=== PATIENT | male | born 1965 | race African-American/Black ===

== ENCOUNTER 2019-05-03 22:12 | Inpatient (IN) | payer MEDICARE, OTHER ==
[~2019-05-03] VITALS: Ht 157.5 cm; Wt 86.3 kg
[~2019-05-03 22:12] MED LIST: HEPARIN SODIUM,PORCINE 5000 UNITS/ML VIAL SUBCUT ONE; LIDOCAINE 1% 10 MG/ML, 20 ML MDV INJ ONE; LR 1,000 ML IV.SOLN IV ONE; METOCLOPRAMIDE HCL 10 MG/2 ML VIAL IVP ONE; MIDAZOLAM HCL 5 MG/5 ML VIAL IVP ONE; NS 50 ML BAG IV ONE; NS IRRIG SOLN 1000 ML IR ONE; ONDANSETRON HCL 4 MG/2 ML VIAL IVP ONE
[2019-05-03 22:20] VITALS: BP_SYST 113
[2019-05-03] MEDS ORDERED: NS 500 ML IV ONE (22:45)
[2019-05-03] MEDS ORDERED: ONDANSETRON HCL 4 MG/2 ML VIAL IVP ONE (22:45)
[2019-05-03 23:55] LABS: BASOPHILS # (AUTO) 0.1 K/uL (0.0-0.2); BASOPHILS % (AUTO) 0.8 % (0.0-2.0); EOSINOPHILS # (AUTO) 0.2 K/uL (0.0-0.4); EOSINOPHILS % (AUTO) 1.8 % (0.0-4.0); HEMATOCRIT 31.4 % (36-54); HEMOGLOBIN 10.4 g/dL (14.0-18.0); LYMPHOCYTES # (AUTO) 3.8 K/uL (1.0-5.5); LYMPHOCYTES % (AUTO) 30.4 % (20.5-51.5); MEAN CORPUSCULAR HEMOGLOBIN 33 pg (27-31); MEAN CORPUSCULAR HGB CONC 33 % (32-36); MEAN CORPUSCULAR VOLUME 99 fL (79.0-98.0); MONOCYTES # (AUTO) 0.8 K/uL (0.0-1.0); MONOCYTES % (AUTO) 6.7 % (1.7-9.3); NEUTROPHILS # (AUTO) 7.6 K/uL (1.8-7.7); NEUTROPHILS % (AUTO) 60.3 % (40.0-70.0); PLATELET COUNT (AUTO) 278 K/uL (130-430); RED BLOOD CELL COUNT(AUTO) 3.17 MIL/uL (4.2-6.2); RED CELL DISTRIBUTION WIDTH 17.7 % (9.0-15.0); WHITE BLOOD COUNT (AUTO) 12.5 K/uL (4.8-10.8)
[2019-05-04 00:08] LABS: CALCIUM 11.8 mg/dL (8.4-11.0); POTASSIUM 5.7 mmol/L (3.5-5.1)
[2019-05-04 00:12] LABS: PROTHROMBIN TIME 9.9 SECS (9.5-12.5)
[2019-05-04 00:15] LABS: ALBUMIN 3.1 g/dL (3.4-4.8); TOTAL BILIRUBIN 0.3 mg/dL (0.0-1.0)
[2019-05-04 00:19] LABS: CREATININE 10.03 mg/dL (0.55-1.30)
[2019-05-04] MEDS ORDERED: ACET-2165 GT (00:31)
[2019-05-04] MEDS ORDERED: BUDE0.5A4 NEB (00:34)
[2019-05-04] MEDS ORDERED: CAT.1 GT (00:35)
[2019-05-04] MEDS ORDERED: CYCL-10 PO (00:36)
[2019-05-04] MEDS ORDERED: BISA10SU61 RC (00:37)
[2019-05-04] MEDS ORDERED: FER300L GT (00:38)
[2019-05-04] MEDS ORDERED: HEPA500015 SUBCUT (00:39)
[2019-05-04] MEDS ORDERED: NA P133E41 RC (00:39)
[2019-05-04] MEDS ORDERED: IPRA3AMP9 INH (00:41)
[2019-05-04] MEDS ORDERED: LABE100T5 GT (00:44)
[2019-05-04] MEDS ORDERED: LACT1TAB21 GT (00:47)
[2019-05-04] MEDS ORDERED: VITA0.4T8 PO (00:50)
[2019-05-04] MEDS ORDERED: VALP250S3 GT (00:52)
[2019-05-04] MEDS ORDERED: INSULIN REGULAR, HUMAN 10 UNITS/0.1 ML INJ IVP ONE (01:00)
[2019-05-04] MEDS ORDERED: DEXTROSE 50% JECT 50 ML DISP.SYRIN IVP ONE ×3 (01:00→06:15)
[2019-05-04] MEDS ORDERED: SODIUM BICARBONATE 8.4% JECT 50 MEQ/50 ML SYRINGE IVP ONE (01:00)
[2019-05-04] MEDS ORDERED: CALCIUM GLUCONATE 1 GM/10 ML VIAL IVP ONE (01:00)
[2019-05-04] MEDS ORDERED: CALCIUM GLUCONATE 1 GM/10 ML VIAL ONE (01:15)
[2019-05-04] MEDS ORDERED: DEXTROSE 50% JECT 50 ML DISP.SYRIN ONE ×2 (01:46→06:23)
[2019-05-04] MEDS ORDERED: ONDANSETRON HCL 4 MG/2 ML VIAL IVP ONE (04:30)
[2019-05-04] MEDS ORDERED: ONDANSETRON HCL 4 MG/2 ML VIAL ONE (04:35)
[2019-05-04] MEDS ORDERED: NUT.237L67 GT (06:07)
[2019-05-04] MEDS ORDERED: PANTOPRAZOLE SODIUM 40 MG/VIAL (PROTONIX) IVP ONE (07:00)
[2019-05-04] MEDS ORDERED: ONDANSETRON HCL 4 MG/2 ML VIAL IVP PRN (07:00)
[2019-05-04 09:00] VITALS: BP_SYST 120
[2019-05-04] MEDS ORDERED: cefTRIAXone 1 GM in D5W 50 ML IV ONE (09:00)
[2019-05-04] MEDS: D5/0.45 NS 1,000 ML IV SCH ×2 (09:24→13:28)
[2019-05-04] MEDS ORDERED: BISACODYL 10 MG/SUPPOSITORY RC PRN (09:30)
[2019-05-04] MEDS ORDERED: ACETAMINOPHEN 325 MG TABLET GT PRN (09:30)
[2019-05-04] MEDS ORDERED: CYCLOBENZAPRINE HCL 10 MG TABLET (FLEXERIL) PO SCH (09:30)
[2019-05-04] MEDS ORDERED: SODIUM POLYSTYRENE SULFONATE 15 GM/60 ML UDBTL GT ONE (10:00)
[2019-05-04 10:27] LABS: BILIRUBIN,URINE NEGATIVE (NEGATIVE); BLOOD, URINE 2+ (NEGATIVE); CLARITY/URINE CLEAR (CLEAR); COLOR,URINE YELLOW (YELLOW); GLUCOSE,URINE NEGATIVE (NEGATIVE); KETONES,URINE NEGATIVE (NEGATIVE); LEUKOCYTE ESTERASE ,URINE NEGATIVE (NEGATIVE); NITRITE, URINE NEGATIVE (NEGATIVE); PH,URINE 6.5 (5.0-8.0); PROTEIN URINE 2+ (NEGATIVE); UROBILINOGEN,URINE 0.2 (0.2-1.0)
[2019-05-04 10:59] LABS: BACTERIA,URINE FEW /HPF (None Seen); MUCUS,URINE 1+ /LPF (None Seen); WBC,URINE 0-3 /HPF (0-3)
[2019-05-04] MEDS ORDERED: HEPARIN SODIUM,PORCINE 5000 UNITS/ML VIAL MC ONE (11:30)
[2019-05-04 12:14] LABS: POTASSIUM 5.2 mmol/L (3.5-5.1)
[2019-05-04 12:17] LABS: ALBUMIN 2.7 g/dL (3.4-4.8); TOTAL BILIRUBIN 0.3 mg/dL (0.0-1.0)
[2019-05-04 12:20] VITALS: BP_SYST 123
[2019-05-04 12:25] LABS: CREATININE 10.33 mg/dL (0.55-1.30)
[2019-05-04 13:01] LABS: BASOPHILS % (AUTO) 0.1 % (0.0-2.0); EOSINOPHILS # (AUTO) 0.1 K/uL (0.0-0.4); EOSINOPHILS % (AUTO) 0.9 % (0.0-4.0); HEMATOCRIT 29.8 % (36-54); HEMOGLOBIN 9.7 g/dL (14.0-18.0); LYMPHOCYTES # (AUTO) 2.6 K/uL (1.0-5.5); LYMPHOCYTES % (AUTO) 21.4 % (20.5-51.5); MEAN CORPUSCULAR HEMOGLOBIN 33 pg (27-31); MEAN CORPUSCULAR HGB CONC 33 % (32-36); MEAN CORPUSCULAR VOLUME 100 fL (79.0-98.0); MONOCYTES % (AUTO) 8.2 % (1.7-9.3); NEUTROPHILS # (AUTO) 8.4 K/uL (1.8-7.7); NEUTROPHILS % (AUTO) 69.4 % (40.0-70.0); PLATELET COUNT (AUTO) 245 K/uL (130-430); RED BLOOD CELL COUNT(AUTO) 2.98 MIL/uL (4.2-6.2); RED CELL DISTRIBUTION WIDTH 17.5 % (9.0-15.0); WHITE BLOOD COUNT (AUTO) 12.1 K/uL (4.8-10.8)
[2019-05-04] MEDS: VALPROIC ACID ORAL SYRUP 250 MG/5 ML UDC GT SCH ×2 (13:28→23:00)
[2019-05-04] MEDS ORDERED: LR 1,000 ML IV SCH (16:16)
[2019-05-04] MEDS ORDERED: HYDROmorphone 2 MG/ML VIAL IVP PRN ×2 (16:30)
[2019-05-04] MEDS ORDERED: HYDROmorphone 1 MG INJ. 1 MG/ML AMPUL IVP PRN (16:30)
[2019-05-04] MEDS ORDERED: MEPERIDINE HCL/PF 25 MG/ML DISP.SYRIN IVP PRN (16:30)
[2019-05-04] MEDS: BUDESONIDE 0.5 MG/2 ML AMPUL.NEB INH SCH (20:01)
[2019-05-04] MEDS: PANTOPRAZOLE SODIUM 40 MG/VIAL (PROTONIX) IVP SCH (22:46)
[2019-05-04] MEDS: HEPARIN SODIUM,PORCINE 5000 UNITS/ML VIAL SUBCUT SCH (22:49)
[2019-05-05 00:44] VITALS: BP_SYST 121
[2019-05-05] MEDS: D5/0.45 NS 1,000 ML IV SCH ×4 (03:00→16:20)
[2019-05-05 03:19] LABS: BARBITURATE, URINE NEGATIVE (NEG <=200); BENZODIAZEPINE, URINE NEGATIVE (NEG <=150); CANNABINOID, URINE NEGATIVE (NEG <=50); COCAINE, URINE NEGATIVE (NEG <=150); METHAMPHETAMINES SCREEN,URINE NEGATIVE (NEG <=500); OPIATE, URINE NEGATIVE (NEG <=100); PHENCYCLIDINE SCREEN,URINE NEGATIVE (NEG <=25); UR TRICYCLIC ANTIDEPRESSANTS NEGATIVE (NEG <=300); URINE AMPHETAMINE NEGATIVE (NEG <=500); URINE METHADONE NEGATIVE (NEG <=200); URINE OXYCODONE SCREEN NEGATIVE (NEG <=100); URINE PROPOXYPHENE SCREEN NEGATIVE (NEG <=300)
[2019-05-05] MEDS: VALPROIC ACID ORAL SYRUP 250 MG/5 ML UDC GT SCH (06:26)
[2019-05-05] MEDS: BUDESONIDE 0.5 MG/2 ML AMPUL.NEB INH SCH ×2 (08:03→20:10)
[2019-05-05] MEDS: PANTOPRAZOLE SODIUM 40 MG/VIAL (PROTONIX) IVP SCH ×2 (11:51→22:24)
[2019-05-05] MEDS: HEPARIN SODIUM,PORCINE 5000 UNITS/ML VIAL SUBCUT SCH ×2 (11:53→22:31)
[2019-05-05 12:00] VITALS: BP_SYST 99
[2019-05-05] MEDS: VALPROATE SODIUM 750 MG in D5W 100 ML IV SCH ×2 (15:33→22:25)
[2019-05-05 16:00] VITALS: BP_SYST 104
[2019-05-05] MEDS: IPRATROPIUM/ALBUTEROL SULFATE 3 ML AMPUL.NEB (DUONEB) INH PRN (19:55)
[2019-05-05 21:16] VITALS: BP_SYST 131
[2019-05-05] MEDS ORDERED: VANCOMYCIN HCL 1 GM/NS PREMIX 250 ML IV ONE (22:00)
[2019-05-05] MEDS: MUPIROCIN 2% TOPICAL OINTMENT 22 GM NS SCH (22:24)
[2019-05-06] MEDS ORDERED: VANCOMYCIN HCL 1000 MG/VIAL IV ONE (00:24)
[2019-05-06 00:28] VITALS: BP_SYST 107
[2019-05-06] MEDS: D5/0.45 NS 1,000 ML IV SCH ×3 (00:55→19:00)
[2019-05-06] MEDS: VALPROATE SODIUM 750 MG in D5W 100 ML IV SCH ×3 (05:41→22:23)
[2019-05-06 07:43] LABS: INR 1.1 (0.80-1.20); PROTHROMBIN TIME 10.7 SECS (9.5-12.5)
[2019-05-06 08:45] VITALS: BP_SYST 139
[2019-05-06] MEDS: PANTOPRAZOLE SODIUM 40 MG/VIAL (PROTONIX) IVP SCH ×2 (08:46→22:23)
[2019-05-06] MEDS: HEPARIN SODIUM,PORCINE 5000 UNITS/ML VIAL SUBCUT SCH ×2 (08:47→22:33)
[2019-05-06] MEDS: MUPIROCIN 2% TOPICAL OINTMENT 22 GM NS SCH ×2 (08:48→22:25)
[2019-05-06] MEDS: BUDESONIDE 0.5 MG/2 ML AMPUL.NEB INH SCH ×2 (09:09→20:34)
[2019-05-06 09:25] LABS: BASOPHILS % (AUTO) 0.4 % (0.0-2.0); EOSINOPHILS # (AUTO) 0.4 K/uL (0.0-0.4); EOSINOPHILS % (AUTO) 4.6 % (0.0-4.0); HEMATOCRIT 22.7 % (36-54); HEMOGLOBIN 7.8 g/dL (14.0-18.0); LYMPHOCYTES # (AUTO) 3.9 K/uL (1.0-5.5); LYMPHOCYTES % (AUTO) 47.6 % (20.5-51.5); MEAN CORPUSCULAR HEMOGLOBIN 34 pg (27-31); MEAN CORPUSCULAR HGB CONC 34 % (32-36); MEAN CORPUSCULAR VOLUME 99 fL (79.0-98.0); MONOCYTES # (AUTO) 0.7 K/uL (0.0-1.0); MONOCYTES % (AUTO) 7.9 % (1.7-9.3); NEUTROPHILS # (AUTO) 3.2 K/uL (1.8-7.7); NEUTROPHILS % (AUTO) 39.5 % (40.0-70.0); PLATELET COUNT (AUTO) 167 K/uL (130-430); RED CELL DISTRIBUTION WIDTH 16.7 % (9.0-15.0); WHITE BLOOD COUNT (AUTO) 8.2 K/uL (4.8-10.8)
[2019-05-06 09:38] LABS: CALCIUM 8.5 mg/dL (8.4-11.0); POTASSIUM 3.9 mmol/L (3.5-5.1)
[2019-05-06 09:39] LABS: ALBUMIN 2.2 g/dL (3.4-4.8); CREATININE 6.08 mg/dL (0.55-1.30); TOTAL BILIRUBIN 0.3 mg/dL (0.0-1.0)
[2019-05-06 13:08] VITALS: BP_SYST 128
[2019-05-06 17:06] VITALS: BP_SYST 134
[2019-05-06 20:00] VITALS: BP_SYST 124
[2019-05-06] MEDS: IPRATROPIUM/ALBUTEROL SULFATE 3 ML AMPUL.NEB (DUONEB) INH PRN (20:34)
[2019-05-07 01:27] VITALS: BP_SYST 110
[2019-05-07] MEDS: D5/0.45 NS 1,000 ML IV SCH (05:40)
[2019-05-07] MEDS: VALPROATE SODIUM 750 MG in D5W 100 ML IV SCH ×3 (05:41→22:59)
[2019-05-07 08:00] VITALS: BP_SYST 113
[2019-05-07] MEDS: BUDESONIDE 0.5 MG/2 ML AMPUL.NEB INH SCH ×2 (09:00→22:06)
[2019-05-07] MEDS: HEPARIN SODIUM,PORCINE 5000 UNITS/ML VIAL SUBCUT SCH ×2 (09:09→23:00)
[2019-05-07] MEDS: MUPIROCIN 2% TOPICAL OINTMENT 22 GM NS SCH ×2 (09:16→23:02)
[2019-05-07] MEDS: PANTOPRAZOLE SODIUM 40 MG/VIAL (PROTONIX) IVP SCH ×2 (09:16→23:02)
[2019-05-07 11:05] VITALS: BP_SYST 113
[2019-05-07 12:00] VITALS: BP_SYST 134
[2019-05-07 14:00] LABS: BASOPHILS % (AUTO) 0.5 % (0.0-2.0); EOSINOPHILS # (AUTO) 0.4 K/uL (0.0-0.4); EOSINOPHILS % (AUTO) 5.3 % (0.0-4.0); HEMATOCRIT 23.6 % (36-54); HEMOGLOBIN 7.9 g/dL (14.0-18.0); LYMPHOCYTES # (AUTO) 2.2 K/uL (1.0-5.5); LYMPHOCYTES % (AUTO) 31.9 % (20.5-51.5); MEAN CORPUSCULAR HEMOGLOBIN 33 pg (27-31); MEAN CORPUSCULAR HGB CONC 34 % (32-36); MEAN CORPUSCULAR VOLUME 98 fL (79.0-98.0); MONOCYTES # (AUTO) 0.6 K/uL (0.0-1.0); MONOCYTES % (AUTO) 8.5 % (1.7-9.3); NEUTROPHILS # (AUTO) 3.7 K/uL (1.8-7.7); NEUTROPHILS % (AUTO) 53.8 % (40.0-70.0); PLATELET COUNT (AUTO) 157 K/uL (130-430); RED CELL DISTRIBUTION WIDTH 16.3 % (9.0-15.0); WHITE BLOOD COUNT (AUTO) 6.9 K/uL (4.8-10.8)
[2019-05-07 14:17] LABS: ALBUMIN 2.3 g/dL (3.4-4.8); CALCIUM 8.4 mg/dL (8.4-11.0); CREATININE 7.08 mg/dL (0.55-1.30); POTASSIUM 3.4 mmol/L (3.5-5.1); TOTAL BILIRUBIN 0.3 mg/dL (0.0-1.0)
[2019-05-07] MEDS ORDERED: ALTEPLASE 2 MG VIAL MC ONE (15:45)
[2019-05-07 17:07] VITALS: BP_SYST 139
[2019-05-07 20:00] VITALS: BP_SYST 118
[2019-05-07] MEDS ORDERED: HEPARIN SODIUM,PORCINE 5000 UNITS/ML VIAL MC ONE ×2 (21:15)
[2019-05-08 01:10] VITALS: BP_SYST 116
[2019-05-08] MEDS: D5/0.45 NS 1,000 ML IV SCH (05:32)
[2019-05-08] MEDS: VALPROATE SODIUM 750 MG in D5W 100 ML IV SCH ×3 (05:32→21:51)
[2019-05-08 08:00] VITALS: BP_SYST 105
[2019-05-08] MEDS: BUDESONIDE 0.5 MG/2 ML AMPUL.NEB INH SCH ×2 (08:19→20:13)
[2019-05-08] MEDS: PANTOPRAZOLE SODIUM 40 MG/VIAL (PROTONIX) IVP SCH ×2 (09:00→21:52)
[2019-05-08] MEDS: MUPIROCIN 2% TOPICAL OINTMENT 22 GM NS SCH ×2 (09:01→21:53)
[2019-05-08] MEDS: HEPARIN SODIUM,PORCINE 5000 UNITS/ML VIAL SUBCUT SCH ×2 (09:02→21:52)
[2019-05-08] MEDS ORDERED: VANCOMYCIN HCL 1,000 MG in NS 250 ML IV ONE (10:00)
[2019-05-08 11:14] LABS: BASOPHILS % (AUTO) 0.4 % (0.0-2.0); EOSINOPHILS # (AUTO) 0.3 K/uL (0.0-0.4); EOSINOPHILS % (AUTO) 4.6 % (0.0-4.0); HEMOGLOBIN 7.7 g/dL (14.0-18.0); LYMPHOCYTES # (AUTO) 2.4 K/uL (1.0-5.5); MEAN CORPUSCULAR HEMOGLOBIN 34 pg (27-31); MEAN CORPUSCULAR HGB CONC 35 % (32-36); MEAN CORPUSCULAR VOLUME 97 fL (79.0-98.0); MONOCYTES # (AUTO) 0.5 K/uL (0.0-1.0); NEUTROPHILS # (AUTO) 3.2 K/uL (1.8-7.7); PLATELET COUNT (AUTO) 142 K/uL (130-430); RED BLOOD CELL COUNT(AUTO) 2.26 MIL/uL (4.2-6.2); RED CELL DISTRIBUTION WIDTH 16.3 % (9.0-15.0); WHITE BLOOD COUNT (AUTO) 6.4 K/uL (4.8-10.8)
[2019-05-08 11:49] LABS: CALCIUM 8.5 mg/dL (8.4-11.0); CREATININE 5.12 mg/dL (0.55-1.30); POTASSIUM 3.3 mmol/L (3.5-5.1)
[2019-05-08 12:00] VITALS: BP_SYST 120
[2019-05-08 17:19] VITALS: BP_SYST 129
[2019-05-08 20:10] VITALS: BP_SYST 128
[2019-05-09] VITALS: BP_SYST 106
[2019-05-09] MEDS: D5/0.45 NS 1,000 ML IV SCH (05:51)
[2019-05-09] MEDS: VALPROATE SODIUM 750 MG in D5W 100 ML IV SCH ×3 (05:52→22:04)
[2019-05-09] MEDS: BUDESONIDE 0.5 MG/2 ML AMPUL.NEB INH SCH ×2 (07:27→19:51)
[2019-05-09 08:00] VITALS: BP_SYST 117
[2019-05-09 08:09] LABS: BASOPHILS % (AUTO) 0.4 % (0.0-2.0); CALCIUM 8.7 mg/dL (8.4-11.0); CREATININE 5.89 mg/dL (0.55-1.30); EOSINOPHILS # (AUTO) 0.3 K/uL (0.0-0.4); EOSINOPHILS % (AUTO) 5.9 % (0.0-4.0); HEMOGLOBIN 7.4 g/dL (14.0-18.0); LYMPHOCYTES # (AUTO) 2.3 K/uL (1.0-5.5); LYMPHOCYTES % (AUTO) 43.2 % (20.5-51.5); MEAN CORPUSCULAR HEMOGLOBIN 35 pg (27-31); MEAN CORPUSCULAR VOLUME 98 fL (79.0-98.0); MONOCYTES # (AUTO) 0.4 K/uL (0.0-1.0); MONOCYTES % (AUTO) 8.2 % (1.7-9.3); NEUTROPHILS # (AUTO) 2.2 K/uL (1.8-7.7); PLATELET COUNT (AUTO) 143 K/uL (130-430); POTASSIUM 3.3 mmol/L (3.5-5.1); RED BLOOD CELL COUNT(AUTO) 2.12 MIL/uL (4.2-6.2); RED CELL DISTRIBUTION WIDTH 16.1 % (9.0-15.0); WHITE BLOOD COUNT (AUTO) 5.3 K/uL (4.8-10.8)
[2019-05-09 09:01] LABS: HEMATOCRIT 20.8 % (36-54); MEAN CORPUSCULAR HGB CONC 35 % (32-36)
[2019-05-09] MEDS: HEPARIN SODIUM,PORCINE 5000 UNITS/ML VIAL SUBCUT SCH ×2 (09:09→22:10)
[2019-05-09] MEDS: PANTOPRAZOLE SODIUM 40 MG/VIAL (PROTONIX) IVP SCH ×2 (09:10→22:05)
[2019-05-09] MEDS: MUPIROCIN 2% TOPICAL OINTMENT 22 GM NS SCH ×2 (09:10→22:05)
[2019-05-09] MEDS ORDERED: HEPARIN SODIUM,PORCINE 5000 UNITS/ML VIAL IV ONE (11:00)
[2019-05-09] MEDS ORDERED: HEPARIN SODIUM,PORCINE 5000 UNITS/ML VIAL MC ONE (11:15)
[2019-05-09 12:37] VITALS: BP_SYST 125
[2019-05-09 12:57] LABS: NEUTROPHILS % (AUTO) 42.3 % (40.0-70.0)
[2019-05-09] MEDS ORDERED: VANCOMYCIN HCL 1 GM/NS PREMIX 250 ML IV ONE (17:00)
[2019-05-09 17:16] VITALS: BP_SYST 116
[2019-05-09 22:02] VITALS: BP_SYST 122
[2019-05-10 00:08] VITALS: BP_SYST 123
[2019-05-10] MEDS: D5/0.45 NS 1,000 ML IV SCH ×2 (02:52→05:13)
[2019-05-10] MEDS: VALPROATE SODIUM 750 MG in D5W 100 ML IV SCH ×3 (05:14→22:46)
[2019-05-10 05:21] LABS: HEPATITIS A AB, IgM Negative (Negative); HEPATITIS B CORE AB, IgM Negative (Negative); HEPATITIS B SURFACE AG Negative (Negative)
[2019-05-10] MEDS: BUDESONIDE 0.5 MG/2 ML AMPUL.NEB INH SCH ×2 (07:41→21:19)
[2019-05-10] MEDS: MUPIROCIN 2% TOPICAL OINTMENT 22 GM NS SCH (10:08)
[2019-05-10] MEDS: PANTOPRAZOLE SODIUM 40 MG/VIAL (PROTONIX) IVP SCH ×2 (10:08→22:46)
[2019-05-10] MEDS: HEPARIN SODIUM,PORCINE 5000 UNITS/ML VIAL SUBCUT SCH ×2 (10:14→22:47)
[2019-05-10 15:23] VITALS: BP_SYST 114
[2019-05-10 15:50] LABS: CALCIUM 9.4 mg/dL (8.4-11.0); CREATININE 4.91 mg/dL (0.55-1.30); POTASSIUM 3.5 mmol/L (3.5-5.1)
[2019-05-10 15:53] LABS: PROTHROMBIN TIME 9.9 SECS (9.5-12.5)
[2019-05-10 16:00] VITALS: BP_SYST 120
[2019-05-11 00:30] VITALS: BP_SYST 120
[2019-05-11] MEDS: D5/0.45 NS 1,000 ML IV SCH (04:00)
[2019-05-11] MEDS: VALPROATE SODIUM 750 MG in D5W 100 ML IV SCH ×3 (05:28→22:00)
[2019-05-11] MEDS: BUDESONIDE 0.5 MG/2 ML AMPUL.NEB INH SCH ×2 (07:44→21:28)
[2019-05-11] MEDS: PANTOPRAZOLE SODIUM 40 MG/VIAL (PROTONIX) IVP SCH (09:29)
[2019-05-11] MEDS: HEPARIN SODIUM,PORCINE 5000 UNITS/ML VIAL SUBCUT SCH ×2 (09:31→21:00)
[2019-05-11] MEDS ORDERED: VANCOMYCIN HCL 1,000 MG in NS 250 ML IV ONE (10:00)
[2019-05-11 11:27] VITALS: BP_SYST 114
[2019-05-11 12:52] VITALS: BP_SYST 140
[2019-05-11 17:03] VITALS: BP_SYST 128
[2019-05-11 20:00] VITALS: BP_SYST 132
[2019-05-12] VITALS: BP_SYST 133
[2019-05-12 00:04] VITALS: BP_SYST 103
[2019-05-12] MEDS: PANTOPRAZOLE SODIUM 40 MG/VIAL (PROTONIX) IVP SCH ×3 (00:33→21:00)
[2019-05-12 04:00] VITALS: BP_SYST 114
[2019-05-12] MEDS: VALPROATE SODIUM 750 MG in D5W 100 ML IV SCH ×3 (05:42→22:00)
[2019-05-12] MEDS: BUDESONIDE 0.5 MG/2 ML AMPUL.NEB INH SCH ×3 (05:45→19:50)
[2019-05-12 08:00] VITALS: BP_SYST 119
[2019-05-12] MEDS: HEPARIN SODIUM,PORCINE 5000 UNITS/ML VIAL SUBCUT SCH (10:00)
[2019-05-12 11:36] VITALS: BP_SYST 128
[2019-05-12] MEDS ORDERED: HEPARIN SODIUM, PORCINE 10,000 UNITS/ 10 ML VIAL MC ONE ×2 (14:00→14:15)
[2019-05-12] MEDS ORDERED: HEPARIN SODIUM,PORCINE 5000 UNITS/ML VIAL MC ONE (14:15)
[2019-05-12] MEDS: D5/0.45 NS 1,000 ML IV SCH (15:36)
[2019-05-12 15:58] VITALS: BP_SYST 118
[2019-05-13] VITALS (8 sets, daily range): BP systolic 102–115
[2019-05-13] MEDS: VALPROATE SODIUM 750 MG in D5W 100 ML IV SCH ×3 (06:43→20:16)
[2019-05-13] MEDS: BUDESONIDE 0.5 MG/2 ML AMPUL.NEB INH SCH ×2 (07:35→20:10)
[2019-05-13] MEDS: PANTOPRAZOLE SODIUM 40 MG/VIAL (PROTONIX) IVP SCH ×2 (11:04→20:16)
[2019-05-13] MEDS: HEPARIN SODIUM,PORCINE 5000 UNITS/ML VIAL SUBCUT SCH ×2 (11:08→20:20)
[2019-05-13] MEDS: D5/0.45 NS 1,000 ML IV SCH ×2 (14:40→20:05)
[2019-05-13] MEDS: IPRATROPIUM/ALBUTEROL SULFATE 3 ML AMPUL.NEB (DUONEB) INH PRN (20:09)
[2019-05-14 00:23] VITALS: BP_SYST 122
[2019-05-14] MEDS: VALPROATE SODIUM 750 MG in D5W 100 ML IV SCH ×3 (04:48→22:35)
[2019-05-14 07:45] VITALS: BP_SYST 113
[2019-05-14] MEDS: PANTOPRAZOLE SODIUM 40 MG/VIAL (PROTONIX) IVP SCH ×2 (08:42→20:42)
[2019-05-14] MEDS: HEPARIN SODIUM,PORCINE 5000 UNITS/ML VIAL SUBCUT SCH ×2 (08:43→20:46)
[2019-05-14 08:54] LABS: BASOPHILS % (AUTO) 0.6 % (0.0-2.0); EOSINOPHILS # (AUTO) 0.4 K/uL (0.0-0.4); EOSINOPHILS % (AUTO) 6.3 % (0.0-4.0); HEMATOCRIT 26.4 % (36-54); HEMOGLOBIN 8.7 g/dL (14.0-18.0); LYMPHOCYTES # (AUTO) 3.8 K/uL (1.0-5.5); LYMPHOCYTES % (AUTO) 53.1 % (20.5-51.5); MEAN CORPUSCULAR HEMOGLOBIN 31 pg (27-31); MEAN CORPUSCULAR HGB CONC 33 % (32-36); MEAN CORPUSCULAR VOLUME 93 fL (79.0-98.0); MONOCYTES # (AUTO) 0.9 K/uL (0.0-1.0); PLATELET COUNT (AUTO) 207 K/uL (130-430); RED BLOOD CELL COUNT(AUTO) 2.85 MIL/uL (4.2-6.2); RED CELL DISTRIBUTION WIDTH 22.8 % (9.0-15.0); WHITE BLOOD COUNT (AUTO) 7.1 K/uL (4.8-10.8)
[2019-05-14] MEDS: BUDESONIDE 0.5 MG/2 ML AMPUL.NEB INH SCH ×2 (09:00→19:53)
[2019-05-14 09:15] LABS: CREATININE 5.71 mg/dL (0.55-1.30); POTASSIUM 3.5 mmol/L (3.5-5.1)
[2019-05-14 12:33] VITALS: BP_SYST 147
[2019-05-14 15:29] VITALS: BP_SYST 95
[2019-05-14] MEDS: IPRATROPIUM/ALBUTEROL SULFATE 3 ML AMPUL.NEB (DUONEB) INH PRN (19:53)
[2019-05-14 20:00] VITALS: BP_SYST 106
[2019-05-14] MEDS: D5/0.45 NS 1,000 ML IV SCH (20:42)
[2019-05-15 01:38] VITALS: BP_SYST 106
== END 2019-05-15 23:40 | disposition short-term general hospital (02) | DRG 314 ==
LOC: SED 22:12 → STU 05-04 06:54 → SMU 05-11 17:17
PROVIDERS: ADMIT Family Medicine; ATTEND Family Medicine
PROC: 02HV33Z Insertion of Infusion Device into Superior Vena Cava, Percutaneous Approach (ICD-10-PCS; 2019-05-04)
PROC: B5181ZA Fluoroscopy of Superior Vena Cava using Low Osmolar Contrast, Guidance (ICD-10-PCS; 2019-05-04)
PROC: 06PYX3Z Removal of Infusion Device from Lower Vein, External Approach (ICD-10-PCS; 2019-05-04)
PROC: 05JY3ZZ Inspection of Upper Vein, Percutaneous Approach (ICD-10-PCS; 2019-05-04)
PROC: 5A1D70Z Performance of Urinary Filtration, Intermittent, Less than 6 Hours Per Day (ICD-10-PCS; 2019-05-04)
PROC: 5A1D70Z Performance of Urinary Filtration, Intermittent, Less than 6 Hours Per Day (ICD-10-PCS; 2019-05-05)
PROC: 5A1D70Z Performance of Urinary Filtration, Intermittent, Less than 6 Hours Per Day (ICD-10-PCS; 2019-05-07)
PROC: 30233N1 Transfusion of Nonautologous Red Blood Cells into Peripheral Vein, Percutaneous Approach (ICD-10-PCS; principal; 2019-05-09)
PROC: 5A1D70Z Performance of Urinary Filtration, Intermittent, Less than 6 Hours Per Day (ICD-10-PCS; 2019-05-09)
PROC: 5A1D70Z Performance of Urinary Filtration, Intermittent, Less than 6 Hours Per Day (ICD-10-PCS; 2019-05-11)
PROC: 5A1D70Z Performance of Urinary Filtration, Intermittent, Less than 6 Hours Per Day (ICD-10-PCS; 2019-05-14)
DX: T82.41XA Breakdown (mechanical) of vascular dialysis catheter, initial encounter (principal); K85.90 Acute pancreatitis without necrosis or infection, unspecified; N18.6 End stage renal disease; G82.50 Quadriplegia, unspecified; I12.0 Hypertensive chronic kidney disease with stage 5 chronic kidney disease or end stage renal disease; G93.40 Encephalopathy, unspecified; Y71.2 Prosthetic and other implants, materials and accessory cardiovascular devices associated with adverse incidents; E87.5 Hyperkalemia; J44.9 Chronic obstructive pulmonary disease, unspecified; K80.20 Calculus of gallbladder without cholecystitis without obstruction; D64.9 Anemia, unspecified; Z99.2 Dependence on renal dialysis; Z87.891 Personal history of nicotine dependence; I69.365 Other paralytic syndrome following cerebral infarction, bilateral; Y92.89 Other specified places as the place of occurrence of the external cause
CPT/HCPCS: 36415; 71045; 74181; 76000; 76700-TC; 78226; 80048; 80053; 80061; 80074; 80202-TC; 80307; 81000-TC; 82150-TC; 82787; 82962; 82977-TC; 83516; 83615-TC; 83690-TC; 84484; 85025; 85610-TC; 85730-TC; 86038; 86886; 86900; 86901; 86920; 87040-TC; 87081; 87186-TC; 90935; 90937; 93005; 94640; 94760; 96374; 96375; 96376; 99285; A9537; C1788; C9113; G0378; J0610; J0696; J1644; J1815; J2405; J2997; J3370; J7030; J7040; J7050; J7060; J7620; J7626; P9021

== ENCOUNTER 2019-06-15 13:16 | Inpatient (IN) | payer MEDICARE, OTHER ==
[~2019-06-15] VITALS: Ht 162.6 cm; Wt 78.5 kg
[~2019-06-15 13:16] MED LIST changes: +ACET-2165 GT; +BISA10SU61 RC; +BUDE0.5A4 NEB; +CAT.1 GT; +CYCL-10 PO; +FER300L GT; +HEPA500015 SUBCUT; -HEPARIN SODIUM,PORCINE 5000 UNITS/ML VIAL SUBCUT ONE; +IPRA3AMP9 INH; +LABE100T5 GT; +LACT1TAB21 GT; -LIDOCAINE 1% 10 MG/ML, 20 ML MDV INJ ONE; -LR 1,000 ML IV.SOLN IV ONE; -METOCLOPRAMIDE HCL 10 MG/2 ML VIAL IVP ONE; -MIDAZOLAM HCL 5 MG/5 ML VIAL IVP ONE; +NA P133E41 RC; -NS 50 ML BAG IV ONE; -NS IRRIG SOLN 1000 ML IR ONE; +NUT.237L67 GT; -ONDANSETRON HCL 4 MG/2 ML VIAL IVP ONE; +VALP250S3 GT; +VITA0.4T8 PO
[2019-06-15 13:20] VITALS: BP_SYST 127
[2019-06-15] MEDS ORDERED: NACL 0.9% 1,000 ML IV ONE (13:40)
--- NOTE | 2019-06-15 13:41 | NUR ---
Patient to ER bed 8 to gown for evaluation.
[2019-06-15] MEDS ORDERED: PANTOPRAZOLE SODIUM 40 MG/VIAL (PROTONIX) IVP ONE ×2 (13:45→16:30)
--- NOTE | 2019-06-15 13:45 | NUR ---
Patient brought in by ambulance in the ED for coffee-ground emesis x2 today. No fevers or chills. Patient is awake and responsive to verbal stimuli, respirations even and unlabored, non-verbal, and quadriplegic. VSS, no signs and symptoms of pain at this time. Will continue to monitor.
--- NOTE | 2019-06-15 13:50 | NUR ---
ER Dr. Collins at bedside examining patient.
--- NOTE | 2019-06-15 14:02 | NUR ---
# 20 gauge angiocath placed to right wrist. Use of asceptic technique. Opsite placed over site. Blood return noted. Blood for lab drawn from site. Flushed with 10 cc of normal saline. No evidence of infiltration noted. Patient tolerated well.
--- NOTE | 2019-06-15 14:08 | NUR ---
ECG done at bedside as ordered by Dr. Collins. Patient tolerated the procedure well.
--- NOTE | 2019-06-15 14:18 | NUR ---
Patient is taken to CT via gurney, in stable condition.
[2019-06-15 14:29] LABS: BASOPHILS # (AUTO) 0.1 K/uL (0.0-0.2); BASOPHILS % (AUTO) 0.4 % (0.0-2.0); EOSINOPHILS # (AUTO) 0.2 K/uL (0.0-0.4); HEMATOCRIT 40.3 % (36-54); HEMOGLOBIN 13.2 g/dL (14.0-18.0); LYMPHOCYTES # (AUTO) 2.7 K/uL (1.0-5.5); LYMPHOCYTES % (AUTO) 11.1 % (20.5-51.5); MEAN CORPUSCULAR HEMOGLOBIN 32 pg (27-31); MEAN CORPUSCULAR HGB CONC 33 % (32-36); MEAN CORPUSCULAR VOLUME 99 fL (79.0-98.0); MONOCYTES # (AUTO) 2.1 K/uL (0.0-1.0); MONOCYTES % (AUTO) 8.5 % (1.7-9.3); NEUTROPHILS # (AUTO) 19.2 K/uL (1.8-7.7); PLATELET COUNT (AUTO) 388 K/uL (130-430); RED BLOOD CELL COUNT(AUTO) 4.08 MIL/uL (4.2-6.2); WHITE BLOOD COUNT (AUTO) 24.3 K/uL (4.8-10.8)
--- NOTE | 2019-06-15 14:31 | NUR ---
Patient is back from CT in stable condition.
[2019-06-15 14:48] LABS: CALCIUM 11.6 mg/dL (8.4-11.0); POTASSIUM 5.3 mmol/L (3.5-5.1)
[2019-06-15 14:52] LABS: ALBUMIN 3.6 g/dL (3.4-4.8); TOTAL BILIRUBIN 0.4 mg/dL (0.0-1.0)
[2019-06-15 14:53] LABS: PROTHROMBIN TIME 10.4 SECS (9.5-12.5)
[2019-06-15 14:55] LABS: CREATININE 8.59 mg/dL (0.55-1.30)
--- NOTE | 2019-06-15 14:55 | NUR ---
Critical results received for BUN 114 and Creatinine 8.69. aware.
[2019-06-15] MEDS: NS 500 ML IV SCH ×3 (15:09→17:13)
--- NOTE | 2019-06-15 16:19 | NUR ---
Per Dr. Collins, pt is not stable for transfer. Will notify pt's insurance.
[2019-06-15] MEDS ORDERED: PIPERACILLIN/TAZO 4.5 GM in NS 100 ML IV ONE (16:30)
--- NOTE | 2019-06-15 16:35 | NUR ---
# 16 FR In and Out catheter with use of sterile technique. Immediate return of 20 ml dark yellow urine noted. Urine sample collected and sent to lab. Pt tolerated procedure well. Patient unable to toilet self.
[2019-06-15] MEDS ORDERED: PIPERACILLIN/TAZOBACTAM 4.5 GM/VIAL (ZOSYN) IV ONE (16:57)
[2019-06-15 17:00] LABS: BILIRUBIN,URINE 1+ (NEGATIVE); BLOOD, URINE 2+ (NEGATIVE); CLARITY/URINE SL CLOUDY (CLEAR); COLOR,URINE YELLOW (YELLOW); GLUCOSE,URINE NEGATIVE (NEGATIVE); KETONES,URINE TRACE (NEGATIVE); LEUKOCYTE ESTERASE ,URINE 2+ (NEGATIVE); NITRITE, URINE NEGATIVE (NEGATIVE); PROTEIN URINE 1+ (NEGATIVE); UROBILINOGEN,URINE 0.2 (0.2-1.0)
[2019-06-15 17:19] LABS: BACTERIA,URINE FEW /HPF (None Seen); HYALINE CASTS, URINE 0-10 /LPF (None Seen); WBC,URINE 20-50 /HPF (0-3)
[2019-06-15 17:32] LABS: CKMB RELATIVE INDEX 0.3 (0.0-2.9); CREATINE KINASE MB 2.2 ng/mL (0-3.6)
--- NOTE | 2019-06-15 18:00 | NUR ---
Received admitting orders from Dr. Hedrick.
--- NOTE | 2019-06-15 18:09 | NUR ---
Reconciled meds. Belonging's list done.
--- NOTE | 2019-06-15 18:26 | NUR ---
Spoke with Dr. Hedrick via phone regarding hemodialysis orders. Consult Dr. Bonner. Will page for orders for HD.
[2019-06-15 18:50] VITALS: BP_SYST 121
--- NOTE | 2019-06-15 19:00 | NUR ---
Patient will be admitted to care of Dr. Hedrick. Admitted to ICU unit. Will go to room 07. Belongings list completed. Complete and up to date summary report printed. SBAR given to Christine at bedside with opportunity for questions.
--- NOTE | 2019-06-15 19:07 | NUR ---
Patient arrived from ER via gurney at 1850. Patient in bed on nasal cannula 2 liters. Nonverbal, awake, alert x 0. In no acute distress. Skin intact. 20 gauge IV site on right wrist saline lock. Dialysis access present on right side of groin, C/D/I. GT clamped. VS temp 98.4, heart rate 122 sinus tach, b/p 121/78. 02 sat 97, Respirations 15.
--- NOTE | 2019-06-15 19:15 | NUR ---
OPENING NOTE PT ER ADMIT. PT LAYING IN BED. PT NONVERBAL. PT ON 2L NASAL CANULA. RESPIRATIONS EQUAL AND UNLABORED. RHONCHI IN UPPER LOBES AND CRACKLES IN BILATERAL BASES. PT SINUS TACHYCARDIA ON MONITOR. PT HAS RIGHT FEMORAL PERMACATH IN PLACE. PT HAS 20G TO RIGHT WRIST SALINE LOCKED. NO EDEMA NOTED. RADIAL AND PEDAL PULSES NORMAL AND PRESENT. G TUBE IN PLACE CLAMPED. BOWEL SOUNDS ACTIVE IN ALL QUADRANTS. PT INCONTINENT. SKIN INTACT. BED LOCKED IN LOWEST POSITION. SAFETY PRECAUTIONS IN PLACE. CALL LIGHT WITH IN REACH. WILL CONTINUE TO MONITOR.
[2019-06-15 20:00] VITALS: BP_SYST 102; BP_SYST 106
--- NOTE | 2019-06-15 20:15 | NUR ---
RN UPDATE EMERGENCY CARE ATTENDANT AT BEDSIDE.
[2019-06-15] MEDS ORDERED: SODIUM PHOSPHATE,MONO-DIBASIC 133 ML ENEMA RC PRN (20:30)
[2019-06-15] MEDS ORDERED: ACETAMINOPHEN 325 MG TABLET GT PRN (20:30)
[2019-06-15] MEDS ORDERED: BISACODYL 10 MG/SUPPOSITORY RC PRN (20:30)
[2019-06-15] MEDS ORDERED: [UNRECOGNIZED DRUG - OTHER] GT SCH (20:30)
[2019-06-15] MEDS ORDERED: CYCLOBENZAPRINE HCL 10 MG TABLET (FLEXERIL) PO PRN (20:30)
[2019-06-15] MEDS ORDERED: LABETALOL HCL 100 MG TABLET GT PRN (20:30)
[2019-06-15] MEDS ORDERED: NUT TX IMPAIRED RENAL FXN SOY GT SCH (20:30)
[2019-06-15 21:00] VITALS: BP_SYST 106; BP_SYST 80
[2019-06-15] MEDS: LACTOBACILLUS RHAMNOSUS GG 1 CAP CAPSULE GT SCH (21:00)
[2019-06-15] MEDS ORDERED: VANCOMYCIN HCL 750 MG in NS 250 ML IV ONE (21:30)
[2019-06-15] MEDS ORDERED: VANCOMYCIN HCL 1000 MG/VIAL IV ONE (21:31)
[2019-06-15] MEDS ORDERED: PIPERACILLIN/TAZOBACTAM 2.25 GM VIAL IV ONE (21:32)
[2019-06-15] MEDS ORDERED: HEPARIN SODIUM,PORCINE 5000 UNITS/ML VIAL ONE (21:33)
[2019-06-15] MEDS ORDERED: PANTOPRAZOLE SODIUM 40 MG/VIAL (PROTONIX) ONE (21:42)
[2019-06-15 22:00] VITALS: BP_SYST 101; BP_SYST 75
--- NOTE | 2019-06-15 22:00 | NUR ---
DR BARRERA EXCHANGE NOTIFIED OF CONSULT IN AM.TALKED TO FERNANDOCarlos MEZA EXCHANGE NOTIFIED OF CONSULT IN AM. TALKED TO FERNANDO DR ENRIQUE EXCHANGE NOTIFIED OF CONSULT IN AM.TALKED TO FERNANDO
[2019-06-15 22:05] LABS: HEMATOCRIT 40.9 % (36-54); MEAN CORPUSCULAR HEMOGLOBIN 32 pg (27-31); MEAN CORPUSCULAR HGB CONC 32 % (32-36); MEAN CORPUSCULAR VOLUME 101 fL (79.0-98.0); PLATELET COUNT (AUTO) 364 K/uL (130-430); RED BLOOD CELL COUNT(AUTO) 4.05 MIL/uL (4.2-6.2); RED CELL DISTRIBUTION WIDTH 20.6 % (9.0-15.0); WHITE BLOOD COUNT (AUTO) 16.4 K/uL (4.8-10.8)
[2019-06-15 23:00] VITALS: BP_SYST 109; BP_SYST 80
[2019-06-15] MEDS: PANTOPRAZOLE SODIUM 40 MG in NS 50 ML IV SCH (23:00)
--- NOTE | 2019-06-15 23:00 | NUR ---
RN UPDATE CIGARETTE MACHINES MECHANIC ANDREE STATES 1L FLUID REMOVED. PT TOLERATED PROCEDURE WELL. CIGARETTE MACHINES MECHANIC STATES FEMORAL PERMACATH FLOWING SLOWLY. CIGARETTE MACHINES MECHANIC ANDREE STATES DIALYSIS WILL BE DONE 06/16/2019. WILL CONTINUE TO MONITOR.
[2019-06-15] MEDS ORDERED: NOREPINEPHRINE BITARTRATE 4 MG in NS 246 ML IV PRN (23:15)
[2019-06-15] MEDS: VALPROIC ACID ORAL SYRUP 250 MG/5 ML UDC GT SCH (23:17)
[2019-06-15] MEDS ORDERED: VALPROIC ACID 250 MG CAPSULE (DEPAKENE) ONE (23:18)
[2019-06-16] VITALS (22 sets, daily range): BP systolic 78–116
[2019-06-16] MEDS ORDERED: NS 250 ML IV ONE (01:00)
[2019-06-16] MEDS: LevALBUTEROL HCL 1.25 MG/0.5 ML *CONC.* VIAL.NEB (XOPENEX CONC.) INH SCH ×4 (01:30→19:51)
[2019-06-16] MEDS: NACL 0.9% 1,000 ML IV SCH ×3 (01:33→23:36)
[2019-06-16] MEDS ORDERED: ZOSYN (PIPERACILLIN/TAZO) 2.25 GM in DEX-ISO (50ml) IV SCH (04:00)
[2019-06-16] MEDS: PANTOPRAZOLE SODIUM 40 MG in NS 50 ML IV SCH ×4 (05:43→21:59)
[2019-06-16] MEDS ORDERED: PANTOPRAZOLE SODIUM 40 MG/VIAL (PROTONIX) ONE (05:48)
[2019-06-16] MEDS ORDERED: VALPROIC ACID 250 MG CAPSULE (DEPAKENE) ONE (06:08)
[2019-06-16] MEDS: VALPROIC ACID ORAL SYRUP 250 MG/5 ML UDC GT SCH ×3 (06:40→20:42)
--- NOTE | 2019-06-16 06:52 | NUR ---
Nutrition Update Terry Scale 11 noted. Pt admitted for Sepsis Diet: Nepro at 45ml/hr, FWF 100ml Q6H via GT BMI: 27.8 kg/m2 RD to follow per nutrition care standards.
--- NOTE | 2019-06-16 07:30 | NUR ---
AM ROUNDS: RECEIVED REPORT FROM NIGHT NURSE CARISSA.PATIENT NON VERBAL.O2 2L/NC.G-TUBE FEEDS ON GOING. RIGHT WRIST PROTONIX RUNNING . RIGHT FEMORAL LINE,DRESSING CLEAN AND DRY. LEFT AV SHUNT NOT IN USE,NOT MATURE YET. NO ACUTE DISTRESS. Addendum: 06/16/19 at 1005 by Belle Morrissey RN corrected above notes: G-tube clamped as ordered.
--- NOTE | 2019-06-16 07:35 | NUR ---
CLOSING NOTE NO SIGNS OF DISTRESS NOTED. PT LAYING IN BED SLEEPING. SBAR REPORT GIVEN TO PIOTR PEPE. CARE ENDORSED.
--- NOTE | 2019-06-16 08:45 | NUR ---
Verified order with Gi: Spoke with dr Butler and hold tube feeds until blood test results is in.
[2019-06-16] MEDS: LACTOBACILLUS RHAMNOSUS GG 1 CAP CAPSULE GT SCH ×4 (09:00→22:13)
[2019-06-16] MEDS: FERROUS SULFATE 300 MG/5 ML UDC GT SCH ×3 (09:21→20:42)
--- NOTE | 2019-06-16 09:45 | NUR ---
Echo : Echo done at the bedside.Ef=59%.
--- NOTE | 2019-06-16 10:02 | NUR ---
Re drawn blood: Blood was not re drawn earlier due to difficulty getting it by phlebotomy.Only now phlebotomy was able to get blood for cbc and chemistry as ordered.
[2019-06-16 10:19] LABS: BASOPHILS # (AUTO) 0.1 K/uL (0.0-0.2); BASOPHILS % (AUTO) 0.7 % (0.0-2.0); EOSINOPHILS # (AUTO) 0.5 K/uL (0.0-0.4); EOSINOPHILS % (AUTO) 3.6 % (0.0-4.0); HEMATOCRIT 32.7 % (36-54); LYMPHOCYTES % (AUTO) 26.6 % (20.5-51.5); MEAN CORPUSCULAR HEMOGLOBIN 32 pg (27-31); MEAN CORPUSCULAR HGB CONC 32 % (32-36); MEAN CORPUSCULAR VOLUME 100 fL (79.0-98.0); MONOCYTES # (AUTO) 1.8 K/uL (0.0-1.0); MONOCYTES % (AUTO) 12.2 % (1.7-9.3); NEUTROPHILS # (AUTO) 8.5 K/uL (1.8-7.7); NEUTROPHILS % (AUTO) 56.9 % (40.0-70.0); PLATELET COUNT (AUTO) 343 K/uL (130-430); RED BLOOD CELL COUNT(AUTO) 3.27 MIL/uL (4.2-6.2); RED CELL DISTRIBUTION WIDTH 20.2 % (9.0-15.0)
[2019-06-16 10:21] LABS: HEMOGLOBIN 10.5 g/dL (14.0-18.0)
[2019-06-16 10:48] LABS: ALBUMIN 2.7 g/dL (3.4-4.8); CALCIUM 9.8 mg/dL (8.4-11.0); CREATININE 7.37 mg/dL (0.55-1.30); POTASSIUM 5.2 mmol/L (3.5-5.1); TOTAL BILIRUBIN 0.4 mg/dL (0.0-1.0)
[2019-06-16] MEDS: NEPHROVITE, (FOLIC ACID/VITAMIN B COMP W-C 1 TAB) PO SCH (11:45)
[2019-06-16] MEDS: PIPERACILLIN/TAZOBACTAM 2.25 GM in NS 50 ML IV SCH ×2 (13:07→22:01)
--- NOTE | 2019-06-16 13:10 | NUR ---
Wound Evaluation: Wound Consult ordered for Low Terry Score. Patient evaluated for a low Terry score of 13. Patient was awake, alert, non-verbal, oriented x 1, and received in a [place] In-Touch Bed with an IsoFlex MACKENZIE mattress with low air-loss therapy initiated. Patient needs to be turned in bed. Recommend reposition patient every 2 hours with pillow support. Elevate, off-load and float bilateral heels with pillows. Offload pressure areas with pillows for pressure re-distribution. Perform skin care and monitor skin integrity Q shift. Use moisture barrier cream on moisture susceptible areas QID and PRN for soiling. Maintain patient on a low air-loss mattress.
--- NOTE | 2019-06-16 14:30 | NUR ---
RN ROUNDS: STABLE. NO ACUTE DISTRESS.
--- NOTE | 2019-06-16 15:15 | NUR ---
NEPHRO ROUNDS: SEEN BY DR AGUILA WITH ORDERS NS IV BOLUS 500ML FOR SBP< 90 THEN IF AFTER IV BOLUS SBP<86 START ON LEVOPHED.MAY START TUBE FEEDINGS ORDERED.
--- NOTE | 2019-06-16 15:19 | NUR ---
IV BOLUS: FOR SBP <90,NS 500CC IV BOLUS GIVEN ORDERED BY DR AGUILA.
--- NOTE | 2019-06-16 17:00 | NUR ---
NEPHRO TF: STARTED NEPHRO TF AT 45CC/H ORDERED.NO RESIDUALS PRIOR TO START TF ,FLUSHED WITH WATER ORDERED.
--- NOTE | 2019-06-16 19:02 | NUR ---
END OF SHIFT: ENDORSED TO INCOMING NIGHT NURSE,PATIENT IN STABLE CONDITION.RIGHT WRIST IV PROTONIX DRIP ON GOING AND NS AT 75CC/H ON GOING. TUBE FEEDS ON GOING.RIGHT ANKIT CATHETER IN PLACE,DRESSING CLEAN AND DRY.CONTINUE TO MONITOR.
--- NOTE | 2019-06-16 20:00 | NUR ---
RECEIVED REPORT PATIENT AWAKE DURING INITIAL ASSESSMENT ,HE IS NON VERBAL WHEN I ASKED HIM TO FOLLOW MY FINGERS TO GO LEFT AND RIGHT PATIENT TRACTS AND FOLLOW HE MAKES EYE CONTACT BUT REMAIN NON VERBAL.PATIENT IS ABLE TO MOVE LEFT UPPER ARM SPONTANOUSLY AND THE REST OF EXTREMITIES ARE PARALYZED.PATIENT ON PROTONIX DRIP AT 8 MG/HR INFUSING SIDE WITH MAINTENANCE IV OF NORMAL SALINE AT 75CC/HR.PATIENT HAS ANKIT IN PLCE JUST ABOVE RIGHT FEMORAL ITS USED FOR DIALYSIS ACCESS.PATIENT HAS A NEW SHUNT ON LEFT UPPER ARM W/C HAS A GOOD THRILL AND BRUIT.PATIENT BREATHE SOUNDS HAS COURSE RHONCHI MOSTLY ON UPPER LOBES HE HAS WEAK COUGH.PEG IN PLACE AND HE IS ON CONTINOUS FEEDING W/ NEPHRO AT 45CC/HR W/C PATIENT IS TOLERATING WELL.
[2019-06-16] MEDS ORDERED: VANCOMYCIN HCL 750 MG in NS 250 ML IV SCH (21:00)
[2019-06-17] VITALS (25 sets, daily range): BP systolic 83–134
[2019-06-17] MEDS: LevALBUTEROL HCL 1.25 MG/0.5 ML *CONC.* VIAL.NEB (XOPENEX CONC.) INH SCH ×4 (00:36→20:32)
--- NOTE | 2019-06-17 02:00 | NUR ---
PATIENT HAD LARGE AMOUNT OF EMESIS MOSTLY FEEDING RESIDUAL IS ABOUT 75CC.FEEDING HELD. COMPLETE BED CHANGE PATIENT IS HAVING SMEAR OF BROWN STOOL.
[2019-06-17] MEDS: PANTOPRAZOLE SODIUM 40 MG in NS 50 ML IV SCH (02:36)
--- NOTE | 2019-06-17 03:00 | NUR ---
ANOTHER BIG AMOUNT O EMESIS REQUIRING TO HAVE COMPLETE BED CHANGED.EMESIS IS MIX WITH [facility] SECRETIONS AND FEEDING. ATTEMPT TO SUCYION PATIENT ORALLY BUT HE WONT OPEN HIS MOUTH.
--- NOTE | 2019-06-17 03:57 | NUR ---
DR. PAIGE GARCIA MADE AWARE OF PT VOMITING X3. PER MD GIVE ZOFRAN 4 MG IVP Q4H PRN. WILL CARRY OUT ORDERED AND CONTINUE TO MONITOR PT.
[2019-06-17] MEDS ORDERED: ONDANSETRON HCL 4 MG/2 ML VIAL IVP PRN (04:00)
[2019-06-17] MEDS ORDERED: ONDANSETRON HCL 4 MG/2 ML VIAL ONE (04:15)
[2019-06-17] MEDS: PIPERACILLIN/TAZOBACTAM 2.25 GM in NS 50 ML IV SCH ×3 (05:36→23:43)
[2019-06-17] MEDS: VALPROIC ACID ORAL SYRUP 250 MG/5 ML UDC GT SCH ×3 (05:39→21:15)
[2019-06-17 06:08] LABS: BASOPHILS % (AUTO) 0.3 % (0.0-2.0); EOSINOPHILS # (AUTO) 1.2 K/uL (0.0-0.4); EOSINOPHILS % (AUTO) 10.4 % (0.0-4.0); HEMATOCRIT 28.1 % (36-54); LYMPHOCYTES # (AUTO) 2.1 K/uL (1.0-5.5); LYMPHOCYTES % (AUTO) 17.3 % (20.5-51.5); MEAN CORPUSCULAR HEMOGLOBIN 32 pg (27-31); MEAN CORPUSCULAR HGB CONC 32 % (32-36); MEAN CORPUSCULAR VOLUME 101 fL (79.0-98.0); MONOCYTES # (AUTO) 1.2 K/uL (0.0-1.0); MONOCYTES % (AUTO) 10.3 % (1.7-9.3); NEUTROPHILS # (AUTO) 7.3 K/uL (1.8-7.7); NEUTROPHILS % (AUTO) 61.7 % (40.0-70.0); PLATELET COUNT (AUTO) 349 K/uL (130-430); WHITE BLOOD COUNT (AUTO) 11.9 K/uL (4.8-10.8)
[2019-06-17 06:32] LABS: ALBUMIN 2.4 g/dL (3.4-4.8); CALCIUM 9.1 mg/dL (8.4-11.0); POTASSIUM 4.4 mmol/L (3.5-5.1); TOTAL BILIRUBIN 0.4 mg/dL (0.0-1.0)
--- NOTE | 2019-06-17 06:41 | NUR ---
NO FARTHER VOMITTING AFTER BEING MEDICATED WITH ZOPRAN.
--- NOTE | 2019-06-17 07:30 | NUR ---
AM ASSESSMENT Pt received from night RN using SBAR. Pt resting in bed with eyes closed, easily awaken to verbal and tactile stimuli. Bed is in lowest position with call light within reach. HOB greater than 35 degrees.
[2019-06-17 07:36] LABS: VANCOMYCIN,RANDOM 12.5 ug/mL
[2019-06-17 07:44] LABS: CREATININE 8.29 mg/dL (0.55-1.30)
[2019-06-17] MEDS: FERROUS SULFATE 300 MG/5 ML UDC GT SCH ×3 (09:02→21:15)
[2019-06-17] MEDS: NEPHROVITE, (FOLIC ACID/VITAMIN B COMP W-C 1 TAB) PO SCH (09:02)
[2019-06-17] MEDS: LACTOBACILLUS RHAMNOSUS GG 1 CAP CAPSULE GT SCH ×4 (09:03→21:14)
[2019-06-17] MEDS: PANTOPRAZOLE SODIUM 40 MG/VIAL (PROTONIX) IVP SCH ×2 (09:03→21:15)
[2019-06-17] MEDS ORDERED: ALTEPLASE 2 MG VIAL MC ONE ×2 (09:15→11:00)
--- NOTE | 2019-06-17 11:09 | NUR ---
Conducted Discharge Plan Assessment Plan is for patient to return to [facility] upon discharge.
[2019-06-17 12:27] LABS: INR 1.1 (0.80-1.20); PROTHROMBIN TIME 10.7 SECS (9.5-12.5)
--- NOTE | 2019-06-17 14:02 | NUR ---
CHG Pt provided CHG. All linen changed. Pt tolerated well
[2019-06-17] MEDS: METOCLOPRAMIDE HCL 10 MG/2 ML VIAL IVP SCH ×2 (14:36→21:14)
--- NOTE | 2019-06-17 14:47 | NUR ---
Family Pts cousin Marky is at bedside.
--- NOTE | 2019-06-17 15:37 | NUR ---
Nutrition Assessment (short note d/t high patient load) A - RD reviewed pertinent nutrition-related info via EMR (physician notes/nursing notes/labs/meds/nursing care trends/care activity). Admission Dx: Sepsis PMH: pancreatitis, dysphagia w/ GT, quadriplegia, anoxic brain injury, CVA, aphasia, COPD per physician notes Current Diet Order/Nutrition Support: Nepro at 45 ml/hr, Free Water Flush: 100 Q 6HRS via GT x1 day Ht: 64"/5'4" Wt: 162#/74 kg IBW: 130#/59 kg %IBW: 125% Adj IBW (obesity): 138#/63 kg Adj IBW (quadriplegia): 114#/52 kg UBW: N/A %UBW: N/A BMI: 27.8 kg/m2 (overweight) Subjective Info: Pt seen high risk d/t Dx of sepsis/RD Notification received for dysphagia, TF, and dialysis/Nutrition Consult for Terry: 11. Pt was seen resting in bed w/ TF hung but held at time of RD visit. NV-[id number] at bedside reported that TF was held d/t complication w/ IV line site/adjustment. Per EMR records, pt had been tolerating TF well with minimal residuals and abd noted as non-distended w/ active bowel sounds; no BM noted yet. Physician notes indicated that pt vomited overnight -- reglan added to med list. Per physician orders, plans for dialysis today. Current TF regimen is adequate/appropriate at this time. ESTIMATED NUTRITIONAL NEEDS CALORIES/DAY: 9606-0060 kcal/day (30-35 kcal/kg Adj IBW for sepsis) PROTEIN/DAY: 62-78 gm/day (1.2-1.5 gm/kg Adj IBW for sepsis, ESRD/dialysis) FLUID/DAY: Per physician d/t ESRD D - Altered nutrition-related labs related to renal dysfunction as evidenced by abnormal BUN/CRE lab values. I - Recommend continuing Nepro at 45 ml/hr, Free Water Flush: 100 Q 6HRS via GT Provides: 1944 kcal/day, 87 gm protein/day, and 1185 ml free water/day Meets: 107% of upper end of estimated caloric needs and 112% of upper end of estimated protein needs M - Monitor tolerance to EN support w/ goal of pt meeting at least 80% of estimated nutritional needs, labs trending WNL, normal GI function, and skin integrity/wt maintenance E - High risk; F/U within 2-3 days
--- NOTE | 2019-06-17 15:44 | NUR ---
Dietitian Recommendations * Recommend continuing Nepro at 45 ml/hr, Free Water Flush: 100 Q 6HRS via GT Provides: 1944 kcal/day, 87 gm protein/day, and 1185 ml free water/day Meets: 107% of upper end of estimated caloric needs and 112% of upper end of estimated protein needs LP, RD Please refer to Nutrition Assessment for details.
--- NOTE | 2019-06-17 16:20 | NUR ---
PATIENT RESTING: Patient resting quietly. No acute distress noted.
[2019-06-17] MEDS: NACL 0.9% 1,000 ML IV SCH (16:31)
--- NOTE | 2019-06-17 19:15 | NUR ---
Closing Notes Pt endorsed to night RN using SBAR
[2019-06-17] MEDS ORDERED: VANCOMYCIN HCL 1,000 MG in NS 250 ML IV ONE (21:00)
[2019-06-18] VITALS (19 sets, daily range): BP systolic 106–146
[2019-06-18] MEDS: LevALBUTEROL HCL 1.25 MG/0.5 ML *CONC.* VIAL.NEB (XOPENEX CONC.) INH SCH ×4 (01:02→20:25)
[2019-06-18] MEDS: METOCLOPRAMIDE HCL 10 MG/2 ML VIAL IVP SCH ×3 (06:20→22:30)
[2019-06-18] MEDS: PIPERACILLIN/TAZOBACTAM 2.25 GM in NS 50 ML IV SCH ×3 (06:21→22:30)
[2019-06-18] MEDS: VALPROIC ACID ORAL SYRUP 250 MG/5 ML UDC GT SCH ×3 (06:21→20:39)
[2019-06-18] MEDS: NACL 0.9% 1,000 ML IV SCH ×2 (06:22→20:40)
[2019-06-18 06:32] LABS: BASOPHILS % (AUTO) 0.4 % (0.0-2.0); EOSINOPHILS # (AUTO) 1.4 K/uL (0.0-0.4); EOSINOPHILS % (AUTO) 12.7 % (0.0-4.0); HEMATOCRIT 25.7 % (36-54); HEMOGLOBIN 8.4 g/dL (14.0-18.0); LYMPHOCYTES # (AUTO) 2.3 K/uL (1.0-5.5); LYMPHOCYTES % (AUTO) 21.1 % (20.5-51.5); MEAN CORPUSCULAR HEMOGLOBIN 33 pg (27-31); MEAN CORPUSCULAR HGB CONC 33 % (32-36); MEAN CORPUSCULAR VOLUME 101 fL (79.0-98.0); MONOCYTES # (AUTO) 1.1 K/uL (0.0-1.0); MONOCYTES % (AUTO) 10.6 % (1.7-9.3); NEUTROPHILS % (AUTO) 55.2 % (40.0-70.0); PLATELET COUNT (AUTO) 315 K/uL (130-430); RED BLOOD CELL COUNT(AUTO) 2.54 MIL/uL (4.2-6.2); RED CELL DISTRIBUTION WIDTH 18.7 % (9.0-15.0); WHITE BLOOD COUNT (AUTO) 10.8 K/uL (4.8-10.8)
--- NOTE | 2019-06-18 07:15 | NUR ---
ENDORSEMENT Pt care endorsed to MY Canseco using nursing SBAR.
[2019-06-18 07:38] LABS: ALBUMIN 2.1 g/dL (3.4-4.8); CALCIUM 8.9 mg/dL (8.4-11.0); POTASSIUM 3.8 mmol/L (3.5-5.1); TOTAL BILIRUBIN 0.3 mg/dL (0.0-1.0)
--- NOTE | 2019-06-18 07:40 | NUR ---
CONSULT PAGED CONSULTING MD: DR. WOODSON CONSULTING SPECIALITY: SURGERY SPOKE TO: PEG ORDERED BY: DR. AGUILA DIALED: [phone]
--- NOTE | 2019-06-18 07:44 | NUR ---
Opening Note Patient received awake and resting in bed with no signs of distress noted. Patient on 2L oxygen via nasal cannula breathing evenly and unlabored. Patient has a RUPALI midline receiving fluids. Patient also has a right dialysis catheter in femoral but is occluded at this time. Surgery consulted for replacement. Patient anuric. Skin intact. Safety precautions enforced.
[2019-06-18 07:46] LABS: CREATININE 9.21 mg/dL (0.55-1.30)
[2019-06-18] MEDS: FERROUS SULFATE 300 MG/5 ML UDC GT SCH ×3 (08:39→20:38)
[2019-06-18] MEDS: PANTOPRAZOLE SODIUM 40 MG/VIAL (PROTONIX) IVP SCH ×2 (08:39→20:38)
[2019-06-18] MEDS: LACTOBACILLUS RHAMNOSUS GG 1 CAP CAPSULE GT SCH ×4 (08:39→20:38)
[2019-06-18] MEDS: NEPHROVITE, (FOLIC ACID/VITAMIN B COMP W-C 1 TAB) PO SCH (08:39)
--- NOTE | 2019-06-18 12:55 | NUR ---
Hemodialysis catheter Dr. Munoz at bedside for hemodialysis catheter insertion using sterile technique. Patient in no signs of distress during procedure.
[2019-06-18] MEDS ORDERED: HEPARIN SODIUM,PORCINE 5000 UNITS/ML VIAL ONE ×2 (13:00→16:43)
--- NOTE | 2019-06-18 13:45 | NUR ---
CHG CHG bath provided and linens changed. Barrier cream applied per wound care treatment order. Patient in no signs of distress.
--- NOTE | 2019-06-18 14:24 | NUR ---
Dialysis automotive lot attendant at bedside at this time. Patient tolerating dialysis well. Patient in no signs of distress.
--- NOTE | 2019-06-18 17:30 | NUR ---
Opening Note Received patient report via SBAR from endorsing nurse
--- NOTE | 2019-06-18 17:45 | NUR ---
Nursing Note Patient had instance of emesis, patient turned to side and suctioned. PRN medication administered
--- NOTE | 2019-06-18 18:00 | NUR ---
Nursing Note Patient had instance of emesis, 400mL of white, thick liquid. Patient turned to side and suctioned. Patient cleaned, gown changed, linens changed. Dr. Butler contacted.
--- NOTE | 2019-06-18 18:30 | NUR ---
MD Call Dr. Butler called regarding patient condition, physician provided orders.
--- NOTE | 2019-06-18 19:10 | NUR ---
Closing Note Patient report given via SBAR to nightshift nurse
--- NOTE | 2019-06-18 19:15 | NUR ---
OPENING NOTE SBAR REPORT RECEIVED FROM STORMY RN. CARE ASSUMED. PT LAYING IN BED. ANOX1. PT ON ROOM AIR. O2 SATURATION 100%. PT SINUS TACH ON MONITOR. PT HAS RIGHT UPPER EXTREMITY MIDLINE RUNNING NS @ 75 ML/HR. PT ALSO HAS 20 G IV TO RIGHT FOREARM SALINE LOCKED. PT HAS LEFT IJ FOR DIALYSIS IN PLACE. NO EDEMA NOTED. RADIAL AND PEDAL PULSES PRESENT. PT HAS G TUBE. NO FEEDING AT THIS TIME DUE TO VOMITING X 3 THIS AFTERNOON. G TUBE CLAMPED. BOWEL SOUNDS ACTIVE IN ALL QUADRANTS. PT ANURIC. SKIN INTACT. BED LOCKED IN LOWEST POSITION. SAFETY PRECAUTIONS IN PLACE. CALL LIGHT WITH IN REACH. WILL CONTINUE TO MONITOR.
--- NOTE | 2019-06-18 21:15 | NUR ---
MD UPDATE SPOKE TO MD GRUBBS (GI). WILL PERFORM EGD IN THE AM. ORDERS UPDATED. WILL CONTINUE TO MONITOR.
[2019-06-19] VITALS (24 sets, daily range): BP systolic 86–127
[2019-06-19] MEDS: LevALBUTEROL HCL 1.25 MG/0.5 ML *CONC.* VIAL.NEB (XOPENEX CONC.) INH SCH ×4 (00:52→20:49)
--- NOTE | 2019-06-19 01:03 | NUR ---
RN UPDATE SPOKE TO SISTER KRISTIN FOR CONSENT FOR EGD. KRISTIN DAIGLE (SISTER) CONSENTED FOR EGD BY MD GRUBBS. CONSENT ON CHART. PT LAYING IN BED. NO VOMITING OR SIGNS OR SYMPTOMS OF DISTRESS. WILL CONTINUE TO MONITOR.
[2019-06-19] MEDS: METOCLOPRAMIDE HCL 10 MG/2 ML VIAL IVP SCH ×3 (05:08→21:36)
[2019-06-19] MEDS: PIPERACILLIN/TAZOBACTAM 2.25 GM in NS 50 ML IV SCH ×3 (05:08→21:39)
[2019-06-19] MEDS: VALPROIC ACID ORAL SYRUP 250 MG/5 ML UDC GT SCH ×3 (05:09→22:00)
[2019-06-19 06:20] LABS: INR 1.1 (0.80-1.20); PROTHROMBIN TIME 10.8 SECS (9.5-12.5)
--- NOTE | 2019-06-19 07:10 | NUR ---
SHIFT REPORT RECEIVED SHIFT REPORT FROM NIGHT RN USING SBAR.
--- NOTE | 2019-06-19 07:19 | NUR ---
CLOSING NOTE PT LAYING IN BED. NO SIGNS AND SYMPTOMS OF DISTRESS NOTED. SURGERY AT BEDSIDE SETTING UP FOR EGD. SBAR REPORT GIVEN TO YOUNG RN. CARE ENDORSED.
--- NOTE | 2019-06-19 08:00 | NUR ---
AM ASSESSMENT Pt resting with in bed. A/O x 4. Complaints of ABD pain 12/18. Insulin drip running at 3units/hr. Blood sugar at 214. Lowered insulin drip to 2units/hr per protocol. Bed locked and in lowest position. Will continue to monitor. Addendum: 06/19/19 at 0842 by Zachariah Landaverde RN Charted on wrong pt. Updated correct pt note.
--- NOTE | 2019-06-19 08:00 | NUR ---
AM Assessment Pt awake. Eyes tracking. Pt acknowledges by shaking head up and down and side to side. No signs of pain or distress. Pt is being prepped for EGD with GI nurse and Dr Butler. Bed locked and in lowest position. Tube feeding is DC. Hypoactive bowels sounds and scant perianal discharge noted.
[2019-06-19] MEDS ORDERED: SIMETHICONE 40 MG/0.6 ML ML ONE (08:05)
[2019-06-19] MEDS ORDERED: fentaNYL CITRATE/PF 100 MCG/2 ML AMP ONE (08:06)
[2019-06-19] MEDS ORDERED: MIDAZOLAM HCL 5 MG/5 ML VIAL ONE (08:07)
[2019-06-19 08:09] LABS: HEPATITIS A AB, IgM Negative (Negative); HEPATITIS B CORE AB, IgM Negative (Negative); HEPATITIS B SURFACE AG Negative (Negative)
--- NOTE | 2019-06-19 08:45 | NUR ---
MD ROUNDS Dr Butler bedside performing EGD. Orders received.
[2019-06-19] MEDS: NEPHROVITE, (FOLIC ACID/VITAMIN B COMP W-C 1 TAB) PO SCH (09:00)
[2019-06-19] MEDS: FERROUS SULFATE 300 MG/5 ML UDC GT SCH (09:00)
[2019-06-19] MEDS: LACTOBACILLUS RHAMNOSUS GG 1 CAP CAPSULE GT SCH ×2 (09:00→12:32)
--- NOTE | 2019-06-19 09:00 | NUR ---
CHG Bath Provided CHG bath and changed linens. Provided oral care due to prior emesis. Will continue to monitor.
[2019-06-19] MEDS: PANTOPRAZOLE SODIUM 40 MG/VIAL (PROTONIX) IVP SCH ×2 (09:30→21:36)
[2019-06-19] MEDS: D5W 1,000 ML IV SCH (09:30)
[2019-06-19] MEDS ORDERED: DIATR MEGLU/DIATRIZ SOD 30 ML SOLUTION PO ONE (09:34)
[2019-06-19] MEDS ORDERED: IOHEXOL 0 ML IV ONE (09:35)
--- NOTE | 2019-06-19 11:00 | NUR ---
MD Rounds Dr Layton Bedside. Orders Received.
[2019-06-19] MEDS ORDERED: *PPN PER PHARMACY XX PRN (11:30)
[2019-06-19] MEDS ORDERED: fentaNYL CITRATE/PF 100 MCG/2 ML AMP IVP ONE (11:54)
[2019-06-19] MEDS ORDERED: MIDAZOLAM HCL 2 MG/2 ML VIAL (VERSED) IVP ONE (11:54)
--- NOTE | 2019-06-19 12:30 | NUR ---
Afternoon assessment Pt resting. No signs of pain or complaints of discomfort. PT Sinus O2 sats @ 100%. No urine output. Will continue to monitor.
--- NOTE | 2019-06-19 14:00 | NUR ---
Provided Oral Care. PT tolerated well. Pt needs to have oral suction PRN.
[2019-06-19] MEDS ORDERED: LABETALOL 100 MG/ 20ML VIAL IVP PRN (14:15)
[2019-06-19] MEDS ORDERED: ACETAMINOPHEN 650 MG SUPP.RECT RC PRN (14:15)
--- NOTE | 2019-06-19 16:30 | NUR ---
MD Rounds Dr Layton Bedside, orders received.
--- NOTE | 2019-06-19 17:16 | NUR ---
Closing Notes Pt resting watching TV. Night RN bedside for assessment. D5W running at 75cc/hr. No complaints of pain or discomfort. Bed locked and in lowest position with call light in reach. Lights on.
--- NOTE | 2019-06-19 18:00 | NUR ---
C.DIFF Pt laboratory came back positive for C.Diff. Placed pt on isolation. Contacted infectious disease MD via exchange. Waiting for orders.
--- NOTE | 2019-06-19 18:00 | NUR ---
Provided perineal and perianal care. PT had BM. No urine output noted for last 11 hours. Will continue to monitor.
--- NOTE | 2019-06-19 19:15 | NUR ---
Endorsement Provided shift report to night RN using SBAR.
--- NOTE | 2019-06-19 20:00 | NUR ---
PATIENT WAS ACCEPTED AND ASSESS DONE, PATIENT WAS HAVING AN BREATHING TEST DONE , TOLERATE FAIRLY WELL PATIENT DOSE NOT SAY ANYTHING WILL LOOK AT YOU , COLOR IS FAIR SOME MOVEMENT OF THE LEFT ARM, RIGHT ARM AT SIDE AND VERY STIFFED WITH THE HAND CURED UP, THE RIGHT LEG IS CONTRACTURE ,,WITH SOME MOVEMENT, LEFT LEG FLEXED ,BOTH ELEVATED ON PILLOWS , NOTICE ON LEFT HAND FINGER NAIL VERY LONG NEED TO BE CUT COLLECTED DIRTY, CAUSE GERMS UNDER THE NAILS, STABLE 2200 COMPLETED BATH WAS GIVEN, HAD AN VERY LARGE BM, SOFT BROWN SKIN CARE WAS GIVEN NO SKIN BREAK DOWN WAS NOTICE AN THICK CREAM BARRIER WAS APPLIED, NO DIAPER, STABLE PATIENT HAS AN G-TUBE NO TUBE FEEDING AT THIS TIME, WILL START IN THE AM,ALSO PO MEDICATION NEED CHANGE TO IV, PATIENT IS NPO AT THIS TIME,STABLE 06/20/19 0000 NO CHANGE WITH THE PATIENT , RESTING NOT SLEEPING, STABLE WILL CONTINUED WITH PLAN OF CARE, STABLE
[2019-06-19] MEDS: VANCOMYCIN HCL ORAL SOLUTION 250 MG/5 ML, 80 ML PO SCH (21:00)
[2019-06-20] VITALS (22 sets, daily range): BP systolic 82–149
[2019-06-20] MEDS: D5W 1,000 ML IV SCH ×3 (00:30→21:00)
[2019-06-20] MEDS: LevALBUTEROL HCL 1.25 MG/0.5 ML *CONC.* VIAL.NEB (XOPENEX CONC.) INH SCH ×4 (01:00→19:00)
--- NOTE | 2019-06-20 05:00 | NUR ---
PATIENT HAD NO SEIZURE ACTIVITY AND NOTICE THE PATIENT CAN URINATE SAW YELLOW STAIN ON BED LINEN , TWO LARGE BM OF DARK GREEN COLOR PASTY LIKE STOOL SKIN WAS GIVEN CREAM TO THE BUTTOCK AND LEG ON PILLOW INSTRUCTED ,PATIEN THAT HIS FEET ON PILLOW NO EDEMA REMAIN NPO, TO START ON PPN IV AND THE PATIENT IS TO BE DIALYSIS THIS AM STABLE
[2019-06-20] MEDS: VALPROIC ACID ORAL SYRUP 250 MG/5 ML UDC GT SCH ×3 (06:00→22:00)
[2019-06-20] MEDS: METOCLOPRAMIDE HCL 10 MG/2 ML VIAL IVP SCH ×3 (06:01→22:46)
[2019-06-20] MEDS: PIPERACILLIN/TAZOBACTAM 2.25 GM in NS 50 ML IV SCH ×2 (06:02→14:14)
[2019-06-20 06:25] LABS: BASOPHILS % (AUTO) 0.3 % (0.0-2.0); EOSINOPHILS # (AUTO) 0.9 K/uL (0.0-0.4); EOSINOPHILS % (AUTO) 8.6 % (0.0-4.0); HEMATOCRIT 26.1 % (36-54); HEMOGLOBIN 8.6 g/dL (14.0-18.0); LYMPHOCYTES # (AUTO) 3.4 K/uL (1.0-5.5); LYMPHOCYTES % (AUTO) 32.2 % (20.5-51.5); MEAN CORPUSCULAR HEMOGLOBIN 33 pg (27-31); MEAN CORPUSCULAR HGB CONC 33 % (32-36); MEAN CORPUSCULAR VOLUME 99 fL (79.0-98.0); MONOCYTES # (AUTO) 1.2 K/uL (0.0-1.0); MONOCYTES % (AUTO) 11.7 % (1.7-9.3); NEUTROPHILS % (AUTO) 47.2 % (40.0-70.0); PLATELET COUNT (AUTO) 344 K/uL (130-430); RED BLOOD CELL COUNT(AUTO) 2.63 MIL/uL (4.2-6.2); RED CELL DISTRIBUTION WIDTH 18.2 % (9.0-15.0); WHITE BLOOD COUNT (AUTO) 10.7 K/uL (4.8-10.8)
[2019-06-20 07:07] LABS: ALBUMIN 2.2 g/dL (3.4-4.8); CALCIUM 9.4 mg/dL (8.4-11.0); CREATININE 6.7 mg/dL (0.55-1.30); PHOSPHORUS 6.3 mg/dL (2.7-4.5); POTASSIUM 3.3 mmol/L (3.5-5.1); TOTAL BILIRUBIN 0.4 mg/dL (0.0-1.0)
--- NOTE | 2019-06-20 07:10 | NUR ---
Shift Report Received shift report from night RN using SBAR.
--- NOTE | 2019-06-20 08:00 | NUR ---
AM ASSESSMENT PT ALERT WITH NO SIGNS OF DISTRESS. PT ABLE TO TRACK WITH EYES AND RESPONDS BY SHAKING HEAD AND GARBLED SPEECH. D5W RUNNING AT 75CC/HR. NO SIGNS OF PAIN. WILL CONTINUE TO MONITOR
[2019-06-20] MEDS: PANTOPRAZOLE SODIUM 40 MG/VIAL (PROTONIX) IVP SCH ×2 (08:17→22:46)
--- NOTE | 2019-06-20 08:30 | NUR ---
CHG BATH CHG BATH GIVEN. PT HAD DARK BROWN DIARRHEA. PROVIDED PERINEAL AND PERIANAL CARE. CHANGED LINENS AND GOWN. PT TOLERATED WELL. WILL CONTINUE TO MONITOR FOR BM.
[2019-06-20] MEDS ORDERED: IOHEXOL 100 ML IV ONE (08:53)
--- NOTE | 2019-06-20 09:00 | NUR ---
ROUNDS Dr Butler okayed vancomycin therapy PO via G-tube.
--- NOTE | 2019-06-20 09:00 | NUR ---
CT SCAN TRANSPORTED TO RADIOLOGY WITH NAEEM FROM RADIOLOGY. CT SCAN DONE WITH, PT TOLERATED WELL. NO SIGNS OF ADVERSE REACTIONS WITH CONTRAST. TRANSPORTED BACK TO ICU 7 WITH NO INCIDENTS.
[2019-06-20] MEDS: VANCOMYCIN HCL ORAL SOLUTION 250 MG/5 ML, 80 ML PO SCH ×4 (09:44→22:47)
--- NOTE | 2019-06-20 10:00 | NUR ---
DIALYSIS NURSE BEDSIDE.
[2019-06-20] MEDS ORDERED: HEPARIN SODIUM, PORCINE 10,000 UNITS/ 10 ML VIAL IV ONE (12:00)
[2019-06-20] MEDS ORDERED: HEPARIN SODIUM, PORCINE 10,000 UNITS/ 10 ML VIAL ONE (12:20)
[2019-06-20] MEDS ORDERED: HEPARIN SODIUM,PORCINE 5000 UNITS/ML VIAL ONE (12:25)
--- NOTE | 2019-06-20 14:14 | NUR ---
Drafter Cartographic:pts. sister req. to speak to a high school social studies teacher MILL ROLL REWINDER met pts. sister, Brenda Yo. She stated her brother is more alert. She added he had a procedure done and the results are pending to determine if pt. has a mass and if it is cancerous. Pts. sister Brenda stated pt. has been at [facility] for over a year. While he was at [facility], the [facility] was holding his bed. Now Brenda is concerned because the Law Secretary at [facility], [place] is stating they can only hold's pts. bed for 7 days. Pt. has been in hospital since 06/15/2019. MILL ROLL REWINDER share with sister the 7 day policy,but she again referred to what she was told during the [facility] hospital stay. MILL ROLL REWINDER confirmed with ESTELLE Mitchell who stated yes the facility is legally obligated to hold the bed for up to 7 days then they can fill the bed if they needed to with another pt. Facility may even hold the bed for pt. Srinath. MILL ROLL REWINDER called pts. sister Brenda, but there was no answer. MILL ROLL REWINDER will go to ICU to see if she is visiting with pt. MILL ROLL REWINDER had a chance to see and speak to pts. sister Brenda to explain the [facility] obligation. MILL ROLL REWINDER will remain available as needed.
--- NOTE | 2019-06-20 14:15 | NUR ---
Dialysis Nurse completed service. No adverse reactions. Removed 1500cc. HR 97, RR 9, O2 Sat 100%, BP 102/60. Will continue to monitor pt.
--- NOTE | 2019-06-20 14:45 | NUR ---
Nutrition F/U A - RD reviewed pertinent nutrition-related info via EMR (physician notes/nursing notes/labs/meds/nursing care trends/care activity). Admission Dx: Sepsis PMH: pancreatitis, dysphagia w/ GT, quadriplegia, anoxic brain injury, CVA, aphasia, COPD per physician notes Current Diet Order/Nutrition Support: NPO x1 day + PPN D20%, AA8.5% at 43 ml/hr, IL20% at 10 ml/hr daily via peripheral line Provides: 1006 kcal/day, 44 gm protein/day, 1272 ml total volume/day, and GIR: 0.9 gm CHO/kg/min Meets: 64% of lower end of estimated caloric needs and 71% of lower end of estimated protein needs Ht: 64"/5'4" Wt: 162#/74 kg IBW: 130#/59 kg %IBW: 125% Adj IBW (obesity): 138#/63 kg Adj IBW (quadriplegia): 114#/52 kg UBW: 165-180# per niece %UBW: 90-101% BMI: 27.8 kg/m2 (overweight) Subjective Info: PPN per pharmacy order 06/19/19 1132. Pt was seen resting in bed, non-verbal, and no nutrition support infusing as bedside. Pt's niece and family friend visiting at bedside. Per RN, pt will start on TPN w/ lipids this evening. ESTIMATED NUTRITIONAL NEEDS CALORIES/DAY: 7585-7598 kcal/day (30-35 kcal/kg Adj IBW for sepsis) PROTEIN/DAY: 62-78 gm/day (1.2-1.5 gm/kg Adj IBW for sepsis, ESRD/dialysis) FLUID/DAY: Per physician d/t ESRD D - Altered nutrition-related labs related to renal dysfunction as evidenced by abnormal BUN/CRE lab values. (*ongoing, some improvement) I - Recommend PPN D20%, AA8.5% at 65 ml/hr (goal rate), IL20% at 10 ml/hr daily via peripheral line Provides: 1275 kcal/day, 66 gm protein/day, 1800 ml total volume/day, and GIR: 1.5 gm CHO/kg/min Meets: 82% of lower end of estimated caloric needs and 106% of lower end of estimated protein needs M - Monitor tolerance to EN support w/ goal of pt meeting at least 80% of estimated nutritional needs, labs trending WNL, normal GI function, and skin integrity/wt maintenance E - High risk; F/U within 2-3 days
--- NOTE | 2019-06-20 17:10 | NUR ---
Dietitian Recommendations * Recommend PPN D20%, AA8.5% at 65 ml/hr (goal rate), IL20% at 10 ml/hr daily via peripheral line Provides: 1275 kcal/day, 66 gm protein/day, 1800 ml total volume/day, and GIR: 1.5 gm CHO/kg/min Meets: 82% of lower end of estimated caloric needs and 106% of lower end of estimated protein needs LP, RD Please refer to Nutrition F/U for details.
--- NOTE | 2019-06-20 19:15 | NUR ---
Endorsement / Closing Notes Provided shift report to night RN using SBAR. Pt sleeping with no signs of pain or distressing symptom. Bed locked and in lowest position. Night nurse bedside with PT.
--- NOTE | 2019-06-20 20:00 | NUR ---
PATIENT WAS ACCEPTED AND ASSESS DONE, PATIENT HAD A BED TRANSFED TO ROOM 112 A, PATIENT AWAKE WITH EYES OPEN, NOTICE THE PERSON TAKEN CARE OF HIM , WAS CLEAN OF LIQUID STOOL, BEFORE BEING TAKEN TO THE ROOM VIA BED, STABLE REPORT WAS GIVEN TO NURSE DEX RANGEL
[2019-06-20] MEDS ORDERED: [UNRECOGNIZED DRUG - OTHER] IV SCH ×7 (21:00)
[2019-06-20] MEDS ORDERED: TPN PERIPHERAL IV SCH ×7 (21:00)
[2019-06-20] MEDS ORDERED: POTASSIUM CHLORIDE IV SCH ×7 (21:00)
[2019-06-20] MEDS ORDERED: SODIUM CHLORIDE IV SCH ×7 (21:00)
--- NOTE | 2019-06-20 21:15 | NUR ---
pt.recieved from the unit:icu.pt.present isolation status;contact;c-diff.pt.presents rt.sided weakness;2/t cva;hx.pt. presents speech status;slurred.pt.presents g-tube;clamped.no g-tube feed ordered.pt.presents picc line; rt.arm. pt.assessed for cleanliness.pt.repositioned.call light/telephone placed w/in the reach of the pt.lt.side;hand. pt.presents hx;hemo-dialysis;h/s access:lt.int.jugular:nydia cath.h/d schedule;:06/20/19 1.5 l removed. Addendum: 06/21/19 at 0228 by Cayetano Beltran RN v/s assessed;values w/in normal limits.o2-sat%=94%@room air;unlabored.
--- NOTE | 2019-06-20 22:00 | NUR ---
pt.assessed.pt.presents quiescent affect;calm,somnolent.pt.assessed for cleanliness.pt.repositioned.picc line intact;patent. g-tube intact;patent. general status stable.respiratory status stable@room air.02-sat%=94%;unlabored.call light/telephone placed w/in the reach of the pt.lt.side;hand. Addendum: 06/21/19 at 0244 by Cayetano Beltran RN i have placed the nsg/pt.alert sign;@hob;re;picc line;rt.arm.
[2019-06-20] MEDS: FAT EMULSIONS 250 ML IV SCH (22:45)
--- NOTE | 2019-06-20 23:00 | NUR ---
i have initiated the administration:tpn/lipids,iv fluids,maxipime;abx;ivpb;initial dose.i have assessed the picc line;i have flushed the the 2 lumens;patent;absent resistance;obstruction.i have administered the medications via the g-tube;flushed w/out resistance.intact;patent;clamped.i have set-up the suction e\q;pt.required suctioning.
[2019-06-20] MEDS ORDERED: CEFEPIME 1 GM/VIAL (MAXIPIME) ONE (23:12)
[2019-06-20] MEDS: CEFEPIME 1 GM in D5W 50 ML IV SCH (23:27)
--- NOTE | 2019-06-21 | NUR ---
pt.assessed.v/s assessed;values w/in normal limits;per flacc;pain mgx assessment;pt.absent facial grimaces/body posturing. picc line intact;patent;tpn/lipids,iv fluids infusing.g-tube intact;patent;flushed w/out resistance.pt.assessed for cleanliness. pt repositioned.general status stable;respiratory status stable:02-sat%=94%;unlabored.i have suctioned the pt.call light/ telephone placed w/in the reach of the pt.lt.side;hand. Addendum: 06/21/19 at 0244 by Cayetano Beltran RN i have assessed the blood glucose;value;100mg/dl.
[2019-06-21] MEDS: LevALBUTEROL HCL 1.25 MG/0.5 ML *CONC.* VIAL.NEB (XOPENEX CONC.) INH SCH ×4 (00:14→20:21)
--- NOTE | 2019-06-21 02:00 | NUR ---
pt. assessed.pt.presents quiescent affect;calm,somnolent.pt.assessed for cleanliness.pt repositioned.picc line intact;patent;tpn/lipids,iv fluids infusing.g-tube intact;patent;flushed w/out resistance.nydia cath intact;patent.general status stable.respiratory status stable;unlabored.o2- sat%=94%.pi have suctioned the pt.call light/telephone placed w/in reach of the pt.lt.side.
[2019-06-21 02:32] VITALS: BP_SYST 118
--- NOTE | 2019-06-21 04:00 | NUR ---
pt.assessed.pt.presents quiescent affect;calm,somnolent.picc line intact;patent;tpn/lipids,iv fluids infusing.g-tube intact;flushed. nydia cath intact.lt.int-jugular.pt.assessed for cleanliness.pt.repositioned.i have suctioned the pt.general status stable. respiratory status stable:02-sat%=96%.call light/telephone placed w/in reach of the pt.lt.side;hand.
[2019-06-21] MEDS: VALPROIC ACID ORAL SYRUP 250 MG/5 ML UDC GT SCH ×2 (05:45→14:57)
[2019-06-21] MEDS: METOCLOPRAMIDE HCL 10 MG/2 ML VIAL IVP SCH ×3 (05:46→23:23)
[2019-06-21] MEDS: D5W 1,000 ML IV SCH (05:59)
--- NOTE | 2019-06-21 06:30 | NUR ---
pt.assessed pt.assessed for cleanliness.pt.repositioned.picc line intact;patent;tpn/lipids,iv fluids infusing.i have changed the iv fluids bag;d5w.i have assessed the blood glucose;value:102mg/dl.pt.suctioned;pt.presents copious amount;phlegm.general status stable. respiratory status stable:02-sat%=96%.i have weighed the pt;2/t hemo-dialysis hx.call light/telephone placed w/in the reach of the pt;lt.side;hand.
[2019-06-21 08:00] VITALS: BP_SYST 121
--- NOTE | 2019-06-21 08:00 | NUR ---
Initial notes- In bed, awake, has slurred speech. No acute distress noted. oral suctioning done with clear thin sputum. On room air tolerating well, on TPN,LIPIDS AND D5 W, on the right upper arm midline. Repositioned, bed alarm on, no fever. will monitor.
[2019-06-21] MEDS: PANTOPRAZOLE SODIUM 40 MG/VIAL (PROTONIX) IVP SCH ×2 (08:32→20:54)
[2019-06-21] MEDS: VANCOMYCIN HCL ORAL SOLUTION 250 MG/5 ML, 80 ML PO SCH ×4 (08:32→20:55)
[2019-06-21 08:52] LABS: ALBUMIN 2.5 g/dL (3.4-4.8); CALCIUM 9.5 mg/dL (8.4-11.0); CREATININE 4.83 mg/dL (0.55-1.30); PHOSPHORUS 4.8 mg/dL (2.7-4.5); POTASSIUM 3.3 mmol/L (3.5-5.1); TOTAL BILIRUBIN 0.3 mg/dL (0.0-1.0)
--- NOTE | 2019-06-21 12:26 | NUR ---
Notes- Turn and repositioned, family at bedside. No on room air. no diarrhea noted. no fever
[2019-06-21 12:56] VITALS: BP_SYST 96
--- NOTE | 2019-06-21 14:47 | NUR ---
Notes- Awake, No distress noted. no fever, no diarrhea, no vomiting noted. repositioned
[2019-06-21 17:00] VITALS: BP_SYST 102
--- NOTE | 2019-06-21 17:30 | NUR ---
Pt vomited thick clear liquid about 150cc. Oral suctioning done. cleaned and repositioned patient.
--- NOTE | 2019-06-21 18:19 | NUR ---
Notes- Resting at this time. No distress noted. All needs meet through out shift. will endorse
--- NOTE | 2019-06-21 19:25 | NUR ---
Opening Note Received report from carolyn RN, patient is resting in bed, A/Ox1, patient is able to track, no signs of acute distress, even and unlabored breathing on room air, right upper arm midline infusing well, no signs of infiltration, no redness, no swelling, G-tube is clamped, 0 residual, safety and fall precautions in place, bed locked and in lowest position, bed alarm on, three side rails up, aspiration and seizure precautions in place, contact isolation precautions in place, call light with patient, will continue to monitor.
[2019-06-21 20:00] VITALS: BP_SYST 100
[2019-06-21] MEDS: FAT EMULSIONS 250 ML IV SCH (20:53)
[2019-06-21] MEDS: CEFEPIME 1 GM in D5W 50 ML IV SCH (20:54)
--- NOTE | 2019-06-21 20:54 | NUR ---
Medications/RN rounds Patient is resting in bed, patient vomited 240mL thick clear liquid, Dr. Butler and Dr. Cardenas aware. Per Dr. Butler ok to give Vanco via G-Tube. Dr. Cardenas ordered to D/C Depakote via G-Tube and to start Depacon IV. Oral suctioning done, dried, cleaned and repositioned. No signs od acute distress. Education given for 2100 scheduled medications, patient unable to verbalize understanding due to cognitive impairment. Administered medications and patient tolerated well. Safety and fall precautions in place, call light with patient will continue to monitor.
[2019-06-21] MEDS ORDERED: SODIUM CHLORIDE IV SCH ×7 (21:00)
[2019-06-21] MEDS ORDERED: TPN PERIPHERAL IV SCH ×7 (21:00)
[2019-06-21] MEDS ORDERED: POTASSIUM CHLORIDE IV SCH ×7 (21:00)
[2019-06-21] MEDS ORDERED: [UNRECOGNIZED DRUG - OTHER] IV SCH ×7 (21:00)
--- NOTE | 2019-06-21 22:47 | NUR ---
CONSULTATION PAGED/CALLED Reason for Consultation: ABDOMINAL MASS Person Who was Notified: ARIELLA Consulting Physician: Cooler Conveyor Loader Specialty: Ordering Physician:
[2019-06-21] MEDS: VALPROATE SODIUM 750 MG in D5W 100 ML IV SCH (23:24)
[2019-06-21] MEDS ORDERED: VALPROATE SODIUM 100 MG/ML VIAL (DEPACON) IV ONE ×2 (23:25→23:28)
--- NOTE | 2019-06-21 23:30 | NUR ---
BS=84 Patient's blood sugar 84. No insulin coverage per sliding scale. Safety and fall precautions in place, call light with patient, will continue to monitor.
[2019-06-22] MEDS: LevALBUTEROL HCL 1.25 MG/0.5 ML *CONC.* VIAL.NEB (XOPENEX CONC.) INH SCH ×4 (01:23→19:36)
--- NOTE | 2019-06-22 02:05 | NUR ---
RN Rounds Patient is resting in bed, no signs of acute distress, tolerating room air, right upper arm midline infusing well, no signs of infiltration, no redness, no swelling, G-tube is clamped, safety and fall precautions in place, bed locked and in lowest position, bed alarm on, three side rails up, aspiration and seizure precautions in place, contact isolation precautions in place, call light with patient, will continue to monitor.
[2019-06-22 02:53] VITALS: BP_SYST 96
[2019-06-22] MEDS: D5W 1,000 ML IV SCH (03:32)
--- NOTE | 2019-06-22 05:40 | NUR ---
Incontinence care: Patient had a BM, provided incontinence care. Patient cleaned, dried, repositioned. Tolerated well. Safety, fall, contact, seizure precautions in place. Will continue to monitor.
[2019-06-22] MEDS: METOCLOPRAMIDE HCL 10 MG/2 ML VIAL IVP SCH ×3 (05:54→23:27)
--- NOTE | 2019-06-22 05:59 | NUR ---
NU=660 Patient's blood sugar 114. No insulin coverage per sliding scale. Safety and fall precautions in place, call light with patient, will continue to monitor.
[2019-06-22] MEDS: VALPROATE SODIUM 750 MG in D5W 100 ML IV SCH ×3 (06:00→23:28)
--- NOTE | 2019-06-22 06:58 | NUR ---
Closing Note Patient is resting in bed, no signs of acute distress, tolerating room air, right upper arm midline infusing well, patent/benign, G-tube is clamped, safety and fall precautions in place, aspiration and seizure precautions in place, contact isolation precautions in place, bed locked and in lowest position, bed alarm on, three side rails up, call light with patient, will endorse care to dayshift RN.
--- NOTE | 2019-06-22 07:55 | NUR ---
INITIAL NOTE RECEIVED PT IN BED, NO S/S OF DISTRESS OR SOB NOTED, PT HAS NO C/O PAIN AT THIS TIME, PT IN STABLE CONDITION, PT AAOX1, NONVERBAL, TRACKS AND OPENS EYES. PT HAS A MIDLINE ON RUPALI, DOUBLE LUMEN, FLUSHES BUT HAS NO BLOOD RETURN, DRESSING CLEAN AND DRY. PT HAS IV FLUIDS AND TPN AND LIPIDS ORDERED. PT HAS A LEFT IJ CATHETER FOR DIALYSIS. LEFT UPPER ARM AV SHUNT BUT NO THRILL OR BRUIT PRESENT. PT HAS BILATERAL SCD'S IN PLACE. BED AT LOWEST POSITION, CALL LIGHT WITHIN REACH, WILL CONTINUE TO MONITOR PT FOR ANY CHANGES. FALL AND SAFETY PRECAUTIONS IN PLACE. CONTACT PRECAUTIONS IN PLACE. Addendum: 06/22/19 at 1850 by Elli Davalos RN NO AV SHUNT PRESENT, NOT FOR THIS PT
[2019-06-22] MEDS: PANTOPRAZOLE SODIUM 40 MG/VIAL (PROTONIX) IVP SCH ×2 (08:36→21:42)
[2019-06-22] MEDS: VANCOMYCIN HCL ORAL SOLUTION 250 MG/5 ML, 80 ML PO SCH ×4 (08:36→21:42)
[2019-06-22 08:51] VITALS: BP_SYST 117
[2019-06-22 10:20] LABS: CALCIUM 10.7 mg/dL (8.4-11.0); CREATININE 6.98 mg/dL (0.55-1.30); PHOSPHORUS 5.3 mg/dL (2.7-4.5); TOTAL BILIRUBIN 0.3 mg/dL (0.0-1.0)
--- NOTE | 2019-06-22 10:20 | NUR ---
MD ROUNDS DR BRUCE RODAS, AWARE OF PATIENT'S CONDITION, AWARE OF PATIENT'S HEART RATE IN THE 100'S UP TO 110. PT ASYMPTOMATIC, NO SOB NOTED, PER MD TO CONTINUE TO MONITOR.
[2019-06-22 10:25] LABS: POTASSIUM 2.7 mmol/L (3.5-5.1)
[2019-06-22 10:41] LABS: ALBUMIN 2.9 g/dL (3.4-4.8)
[2019-06-22] MEDS ORDERED: POTASSIUM CHLORIDE 40 MEQ in NS 250 ML IV ONE ×2 (11:00)
--- NOTE | 2019-06-22 11:01 | NUR ---
MD CONNOR CALLED [employer] AT [phone] SPOKE WITH JARED TO INFORM THEM CONSULT AUDRA MAY.
[2019-06-22] MEDS: INSULIN REGULAR, HUMAN 100 UNITS/ML, 10 ML VIAL (humuLIN R) SUBCUT PRN ×2 (11:28→17:08)
--- NOTE | 2019-06-22 12:05 | NUR ---
ROUNDS PT IN BED, NO S/S OF DISTRESS OR SOB NOTED, PT HAS NO C/O PAIN AT THIS TIME WHEN ASKED HE NODS. PT RESTING COMFORTABLY, WILL CONTINUE TO MONITOR PT FOR ANY CHANGES.
[2019-06-22 12:51] VITALS: BP_SYST 97
[2019-06-22 16:52] VITALS: BP_SYST 114
--- NOTE | 2019-06-22 18:48 | NUR ---
CLOSING NOTE INITIAL NOTE PT IN BED, NO S/S OF DISTRESS OR SOB NOTED, PT HAS NO C/O PAIN AT THIS TIME, PT IN STABLE CONDITION, PT AAOX1, NONVERBAL, TRACKS AND OPENS EYES. PT HAS A MIDLINE ON RUPALI, DOUBLE LUMEN, FLUSHES BUT HAS NO BLOOD RETURN, DRESSING CLEAN AND DRY. PT HAS IV FLUIDS AND TPN AND LIPIDS ORDERED. PT HAS A LEFT IJ CATHETER FOR DIALYSIS. PT HAS BILATERAL SCD'S IN PLACE. BED AT LOWEST POSITION, CALL LIGHT WITHIN REACH, WILL ENDORSE CARE OF PT TO INCOMING NURSE. FALL AND SAFETY PRECAUTIONS IN PLACE. CONTACT PRECAUTIONS IN PLACE.
--- NOTE | 2019-06-22 19:50 | NUR ---
Opening Note Received report from carolyn RN, patient is resting in bed, awake, A/Ox1, no signs of acute distress, patient is able to track and follow commands, even and unlabored breathing on room air, right upper arm midline infusing TPN and fluids per MD order, no signs of infiltration, no redness, no swelling, G-tube is clamped, 0 residual, safety and fall precautions in place, bed locked and in lowest position, bed alarm on, three side rails up, aspiration and seizure precautions in place, contact isolation precautions in place, call light with patient, will continue to monitor.
[2019-06-22 20:00] VITALS: BP_SYST 109
[2019-06-22] MEDS ORDERED: CEFEPIME 1 GM/VIAL (MAXIPIME) ONE ×2 (20:26→20:34)
[2019-06-22] MEDS ORDERED: TPN PERIPHERAL IV SCH ×7 (21:00)
[2019-06-22] MEDS ORDERED: [UNRECOGNIZED DRUG - OTHER] IV SCH ×7 (21:00)
[2019-06-22] MEDS ORDERED: SODIUM CHLORIDE IV SCH ×7 (21:00)
[2019-06-22] MEDS ORDERED: POTASSIUM CHLORIDE IV SCH ×7 (21:00)
[2019-06-22] MEDS: CEFEPIME 1 GM in D5W 50 ML IV SCH (21:39)
--- NOTE | 2019-06-22 21:40 | NUR ---
Medications Patient is resting in bed, educated patient on 2100 scheduled medications. Patient unable to verbalize understanding due to cognitive impairment. Administered vanco PO via G-Tube per MD order, patient tolerated well, hung scheduled medications. IV site is patent/benign. No signs of acute distress. Safety and fall precautions in place, call light with patient will continue to monitor.
[2019-06-22] MEDS: FAT EMULSIONS 250 ML IV SCH (21:41)
--- NOTE | 2019-06-22 23:34 | NUR ---
BS=84 Patient's blood sugar 84. No insulin coverage per sliding scale. Safety and fall precautions in place, call light with patient, will continue to monitor. Addendum: 06/23/19 at 0734 by Diana Henley RN Patient's blood sugar was 93.
[2019-06-23] MEDS: LevALBUTEROL HCL 1.25 MG/0.5 ML *CONC.* VIAL.NEB (XOPENEX CONC.) INH SCH ×4 (02:04→19:09)
[2019-06-23] MEDS ORDERED: LevALBUTEROL HCL 1.25 MG/0.5 ML *CONC.* VIAL.NEB (XOPENEX CONC.) INH ONE (02:07)
--- NOTE | 2019-06-23 02:07 | NUR ---
RN Rounds Patient is resting in bed, tolerating room air, no signs of acute distress, right upper arm midline infusing well, patent/benign, G-tube is clamped, safety and fall precautions in place, bed locked and in lowest position, bed alarm on, three side rails up, aspiration and seizure precautions in place, contact isolation precautions in place, call light with patient, will continue to monitor.
[2019-06-23 02:24] VITALS: BP_SYST 93
[2019-06-23] MEDS: D5W 1,000 ML IV SCH (03:34)
[2019-06-23] MEDS: VALPROATE SODIUM 750 MG in D5W 100 ML IV SCH ×3 (05:39→21:15)
[2019-06-23] MEDS: METOCLOPRAMIDE HCL 10 MG/2 ML VIAL IVP SCH ×3 (05:40→21:16)
--- NOTE | 2019-06-23 05:42 | NUR ---
BS=84 Patient's blood sugar 84. No insulin coverage per sliding scale. Safety and fall precautions in place, call light with patient, will continue to monitor.
--- NOTE | 2019-06-23 06:43 | NUR ---
Closing Note Patient is resting in bed, awake, no signs of acute distress, tolerating room air, right upper arm midline infusing TPN and fluids per MD order, patent/benign, G-tube is clamped, 0 residual, safety and fall precautions in place, bed locked and in lowest position, bed alarm on, three side rails up, aspiration and seizure precautions in place, contact isolation precautions in place, call light with patient, will endorse care to dayshift RN.
--- NOTE | 2019-06-23 07:30 | NUR ---
Opening Note Received plan of care via sbar from endorsing nurse Diana PEPE. Completed patient round.
[2019-06-23 08:00] VITALS: BP_SYST 113
[2019-06-23] MEDS ORDERED: LIDOCAINE 1%, 20 ML MDV 20 ML ONE (09:39)
[2019-06-23] MEDS: PANTOPRAZOLE SODIUM 40 MG/VIAL (PROTONIX) IVP SCH ×2 (09:43→21:14)
[2019-06-23] MEDS: VANCOMYCIN HCL ORAL SOLUTION 250 MG/5 ML, 80 ML PO SCH ×4 (09:45→21:15)
--- NOTE | 2019-06-23 10:00 | NUR ---
Patient transported to radiology for CT guided biopsy of the upper right ABD. Patient disconnected from IV and placed on gurney. Patient transported along with Rad Staff and RN. No complaint or complications.
[2019-06-23 12:15] VITALS: BP_SYST 96
--- NOTE | 2019-06-23 12:30 | NUR ---
Patient lethargic check blood sugar and it was 54. Followed protocol and administered D50. Patient now alert AOx1 which is baseline for him.
[2019-06-23] MEDS: DEXTROSE 50% JECT 50 ML DISP.SYRIN IVP PRN (12:39)
--- NOTE | 2019-06-23 12:47 | NUR ---
Rechecked Blood sugar and result was 94. Patient alert and awake.
--- NOTE | 2019-06-23 14:11 | NUR ---
Nutrition F/U A - ETHAN reviewed pertinent nutrition-related info via EMR (physician notes/nursing notes/labs/meds/nursing care trends/care activity). Admission Dx: Sepsis PMH: pancreatitis, dysphagia w/ GT, quadriplegia, anoxic brain injury, CVA, aphasia, COPD per physician notes Current Diet Order/Nutrition Support: NPO x4 days + PPN D20%, AA8.5% at 50 ml/hr, IL20% at 10 ml/hr daily via peripheral line Provides: 1092 kcal/day, 51 gm protein/day, 1440 ml total volume/day, and GIR: 1.6 gm CHO/kg/min Meets: 70% of lower end of estimated caloric needs and 82% of lower end of estimated protein needs Ht: 64"/5'4" Wt: 162#/74 kg IBW: 130#/59 kg %IBW: 125% Adj IBW (obesity): 138#/63 kg Adj IBW (quadriplegia): 114#/52 kg UBW: 165-180# per niece %UBW: 90-101% BMI: 27.8 kg/m2 (overweight) Subjective Info: Pt was seen resting in bed, non-verbal, and TPN infusing at 50ml/hr. RD s/w pharmD Kobi earlier today. RD rec is to increase infusion rate to goal rate of 65ml/hr. PharmD agreed. Per bed huddle discussion, pt is awaiting biopsy results, and pt is for HD today. Last BM per EMR, 06/23 x2. ESTIMATED NUTRITIONAL NEEDS CALORIES/DAY: 4953-9284 kcal/day (30-35 kcal/kg Adj IBW for sepsis) PROTEIN/DAY: 62-78 gm/day (1.2-1.5 gm/kg Adj IBW for sepsis, ESRD/dialysis) FLUID/DAY: Per physician d/t ESRD D - 1. Altered nutrition-related labs related to renal dysfunction as evidenced by abnormal BUN/CRE lab values. (*ongoing) 2. Inadequate TPN intake r/t current infusion rate AEB current TPN intake meets <75% of est needs. (*new) I - 1. Recommend to increase TPN infusion rate to goal rate (65ml/hr). 2. Recommend PPN D20%, AA8.5% at 65 ml/hr (goal rate), IL20% at 10 ml/hr daily via peripheral line Provides: 1275 kcal/day, 66 gm protein/day, 1800 ml total volume/day, and GIR: 1.5 gm CHO/kg/min Meets: 82% of lower end of estimated caloric needs and 106% of lower end of estimated protein needs M - Monitor tolerance to TPN support w/ goal of pt meeting at least 80% of estimated nutritional needs, labs trending WNL, normal GI function, and skin integrity/wt maintenance E - High risk; F/U within 2-3 days
--- NOTE | 2019-06-23 14:19 | NUR ---
Dietitian Recommendation 1. Recommend to increase TPN infusion rate to goal rate (65ml/hr). 2. Recommend PPN D20%, AA8.5% at 65 ml/hr (goal rate), IL20% at 10 ml/hr daily via peripheral line Provides: 1275 kcal/day, 66 gm protein/day, 1800 ml total volume/day, and GIR: 1.5 gm CHO/kg/min Meets: 82% of lower end of estimated caloric needs and 106% of lower end of estimated protein needs RD s/w pharmD Kobi. Please see Nutrition F/U note for details. ETHAN SOLIS
--- NOTE | 2019-06-23 16:00 | NUR ---
PATIENT RESTING: Patient resting quietly. No acute distress noted. Vital signs within normal range.
[2019-06-23 16:15] VITALS: BP_SYST 128
--- NOTE | 2019-06-23 19:25 | NUR ---
Closing Note Provided plan of care via sbar to receiving Nurse RN. Completed patient round.
[2019-06-23 20:04] VITALS: BP_SYST 118
[2019-06-23] MEDS ORDERED: [UNRECOGNIZED DRUG - OTHER] IV SCH ×7 (21:00)
[2019-06-23] MEDS ORDERED: TPN PERIPHERAL IV SCH ×7 (21:00)
[2019-06-23] MEDS ORDERED: SODIUM CHLORIDE IV SCH ×7 (21:00)
[2019-06-23] MEDS ORDERED: POTASSIUM CHLORIDE IV SCH ×7 (21:00)
[2019-06-23] MEDS: CEFEPIME 1 GM in D5W 50 ML IV SCH (21:15)
--- NOTE | 2019-06-23 21:15 | NUR ---
GASTRIC TUBE CLAMP , patient awake HEMODIALYSIS is pending this hour continue to monitor .
[2019-06-23] MEDS: FAT EMULSIONS 250 ML IV SCH (21:20)
[2019-06-23] MEDS ORDERED: HEPARIN SODIUM,PORCINE 5000 UNITS/ML VIAL ONE (22:20)
--- NOTE | 2019-06-23 22:54 | NUR ---
HEMODIALYSIS in progress at the bedside HOB elevated chest movement symmetrical .
--- NOTE | 2019-06-23 23:38 | NUR ---
HEMODIALYSIS AT THE BEDSIDE STOP D/T LOW BP 92/52 HR 103 started NASAL CANNULA applied at 2 LITERS PER MINUTE .
--- NOTE | 2019-06-23 23:39 | NUR ---
DR MINGO GARCIA UPDATED & AWARE OF HEMODIALYSIS & LOW BP , will continue to monitor .
[2019-06-24 00:12] VITALS: BP_SYST 95
[2019-06-24] MEDS: D5W 1,000 ML IV SCH (00:44)
[2019-06-24] MEDS: LevALBUTEROL HCL 1.25 MG/0.5 ML *CONC.* VIAL.NEB (XOPENEX CONC.) INH SCH ×4 (00:50→19:29)
--- NOTE | 2019-06-24 04:07 | NUR ---
LOOSE STOOL NOTED bed bath given off loading with pillows kept clean also dry as needed patient awake non verbal .
[2019-06-24] MEDS: VALPROATE SODIUM 750 MG in D5W 100 ML IV SCH ×3 (06:02→21:22)
[2019-06-24 06:50] VITALS: BP_SYST 103
[2019-06-24 08:00] VITALS: BP_SYST 103
--- NOTE | 2019-06-24 08:00 | NUR ---
Note Pt resting in bed - no SOB/resp distress or pain/discomfort noted at this time. Dr Butler was at bedside at 0715am for assessing pt. Dr Butler stated okay to give Vanco through GT - no feedings through GT at this time. RUPALI midline intact and patent infusing IVF's/TPN/Lipids at this time. Right arm swollen - non pitting at this time. Radial pulses can be checked at this time. Tele unit attached and intact. GT clamped at this time. Pt next to nurses' station for close observation for needs and care. Pt has bilateral SCD's at this time. Call light within reach.
[2019-06-24 08:36] LABS: CREATININE 6.82 mg/dL (0.55-1.30); POTASSIUM 3.2 mmol/L (3.5-5.1); TOTAL BILIRUBIN 0.3 mg/dL (0.0-1.0)
[2019-06-24] MEDS: PANTOPRAZOLE SODIUM 40 MG/VIAL (PROTONIX) IVP SCH ×2 (08:37→21:21)
[2019-06-24] MEDS: VANCOMYCIN HCL ORAL SOLUTION 250 MG/5 ML, 80 ML PO SCH ×4 (08:38→21:22)
[2019-06-24 09:26] LABS: CALCIUM 9.8 mg/dL (8.4-11.0)
--- NOTE | 2019-06-24 11:27 | NUR ---
DC PLANNING: Called Paula with [facility] at [phone] awaiting call back regarding dc planning and clinical update as requested.
--- NOTE | 2019-06-24 11:49 | NUR ---
[facility] Planning: DCP faxed pt referral to [facility] (f [phone] p [phone]) DCP to follow up
[2019-06-24 12:08] VITALS: BP_SYST 113
--- NOTE | 2019-06-24 12:30 | NUR ---
Note TPN/Lipids/IVF's were stopped at this time - RUPALI midline. Pt's sister states the right arm is too swollen for continuation of IVF's/TPN/Lipids. Arm is swollen - non pitting. Dr Cardenas paged at this time to notify MD of situation. Addendum: 06/24/19 at 1741 by Starla Hansen RN note 1400 - Depacon 750mg IVPB held - no IV access. RUPALI midline swollen arm.
--- NOTE | 2019-06-24 13:20 | NUR ---
Note Pt's sister Tessie came to bedside at 1045am and has now left bedside.
--- NOTE | 2019-06-24 15:05 | NUR ---
Note Pt's RUPALI midline still saline locked waiting for US of venous Doppler of right upper arm and for Dr Cardenas to come in and assess pt. No IVPB antibiotics or TPN infusing at this time.
--- NOTE | 2019-06-24 16:00 | NUR ---
Note Pt resting in bed, niece at bedside since 1440. Questions/concerns were answered at this time. Waiting to speak to Dr Cardenas, US Doppler of RUPALI is negative. RUPALI midline saline locked still. No needs noted at this time. Call light within reach.
[2019-06-24 16:11] VITALS: BP_SYST 103
--- NOTE | 2019-06-24 18:25 | NUR ---
Note Pt resting in bed. Dr Cardenas was notified that US Doppler of RUPALI was negative. Dr Cardenas to come in and evaluate RUPALI swelling. No TPN/Lipids/IVF's infusing. Pt was checked on q1' and RPN all shift for needs and care. Pt's GT clamped and no feedings infusing. RUPALI midline intact and patent. SCD's on bilaterally. No needs noted. Tele unit attached and intact. Call light within reach. Pt has been next to nurses' station all shift for close observation.
--- NOTE | 2019-06-24 18:50 | NUR ---
Note Dr Cardenas on the floor and after assessment stated let the PICC RN assess site. After assessment if PICC RN states it is okay to continue TPN/Lipids/IVF's through RUPALI midline - may start all fluids. US Doppler of RUPALI is negative. Pt has no access on left arm - AV shunt present. Pt also has Left IJ for dialysis. PICC RN due to be coming in soon.
--- NOTE | 2019-06-24 19:25 | NUR ---
Note Pt's sister Tessie was called and informed that Dr Cardenas had assessed the RUPALI and stated pt should continue TPN for pt's nourishment at this time, while waiting for PICC bradder. US Doppler was negative - Tessie made aware.
--- NOTE | 2019-06-24 20:00 | NUR ---
RIGHT ARM & HAND KEPT ELEVATED KEPT UPRIGHT POSITION D/T SWELLING & HELPFUL .
[2019-06-24 20:44] VITALS: BP_SYST 102
[2019-06-24] MEDS ORDERED: SODIUM CHLORIDE IV SCH ×10 (21:00)
[2019-06-24] MEDS ORDERED: TPN PERIPHERAL IV SCH ×10 (21:00)
[2019-06-24] MEDS ORDERED: SODIUM ACETATE IV SCH ×10 (21:00)
[2019-06-24] MEDS ORDERED: [UNRECOGNIZED DRUG - OTHER] IV SCH ×10 (21:00)
[2019-06-24] MEDS: FAT EMULSIONS 250 ML IV SCH (21:25)
[2019-06-24] MEDS: CEFEPIME 1 GM in D5W 50 ML IV SCH (21:34)
--- NOTE | 2019-06-24 22:38 | NUR ---
PHONED PAGED DR PAIGE GARCIA Regarding PICC line Nurse & PHARMACY Recommendation to STOP TPN & START D 10 IVF .
--- NOTE | 2019-06-25 | NUR ---
New ORDERS DR GIBSON , D/C old MIDLINE , PLACE NEW MIDLINE d/t compression .
--- NOTE | 2019-06-25 00:10 | NUR ---
PICC LINE NURSE here & did assess patients Right arm midline .
[2019-06-25 00:24] VITALS: BP_SYST 114
[2019-06-25] MEDS: LevALBUTEROL HCL 1.25 MG/0.5 ML *CONC.* VIAL.NEB (XOPENEX CONC.) INH SCH ×5 (00:24→20:10)
[2019-06-25] MEDS: D10W 1,000 ML IV SCH ×2 (01:16→17:02)
[2019-06-25] MEDS: VALPROATE SODIUM 750 MG in D5W 100 ML IV SCH ×3 (06:02→23:07)
[2019-06-25 07:59] VITALS: BP_SYST 99
--- NOTE | 2019-06-25 08:00 | NUR ---
Note Pt resting in bed - no SOB/resp distress or pain/discomfort noted at this time. Tele unit attached and intact at this time. IV in RUPALI midline intact and patent infusing IVF's at this time. Pt has no needs at this time. Pt next to nurses' station at this time. Call light within reach.
[2019-06-25] MEDS: VANCOMYCIN HCL ORAL SOLUTION 250 MG/5 ML, 80 ML PO SCH ×4 (08:30→23:06)
[2019-06-25] MEDS: PANTOPRAZOLE SODIUM 40 MG/VIAL (PROTONIX) IVP SCH ×2 (08:30→23:06)
--- NOTE | 2019-06-25 11:00 | NUR ---
Note Pt was given hygiene care and bed bath with assist from RN. Pt turned and linens changed at this time. Call light within reach.
[2019-06-25 11:31] VITALS: BP_SYST 120
--- NOTE | 2019-06-25 14:00 | NUR ---
Note Pt's sister Brenda was at bedside 0945am to 1140am. Questions/concerns were answered at this time. residential treatment staff at bedside at 1310 to start dialysis at this time. Pt given labs, 2 bags NS 1000cc/each and order for dialysis at this time Pt resting in bed, no needs noted at this time. Call light within reach.
[2019-06-25] MEDS ORDERED: HEPARIN SODIUM,PORCINE 5000 UNITS/ML VIAL ONE (15:36)
[2019-06-25 15:46] VITALS: BP_SYST 86
[2019-06-25] MEDS ORDERED: D5/0.45 NS 1,000 ML IV SCH (18:00)
[2019-06-25 18:26] LABS: CALCIUM 9.2 mg/dL (8.4-11.0); CREATININE 3.78 mg/dL (0.55-1.30); PHOSPHORUS 2.5 mg/dL (2.7-4.5); POTASSIUM 3.1 mmol/L (3.5-5.1)
--- NOTE | 2019-06-25 18:30 | NUR ---
NOTE Pt was checked on q1' and PRN all shift for needs and care. No SOB/resp distress or pain/discomfort noted at this time. Left IJ intact and dressed at this time. RUPALI midline intact and patent infusing IVF's well. Pt has bilateral SCD's on all shift and lower extremities elevated on pillows. Pt stable. Tele unit attached and intact. Call light within reach. Addendum: 06/25/19 at 1845 by Starla Hansen RN Pt's right arm swelling has decreased significantly since yesterday - right arm has been elevated on pillow since yesterday.
[2019-06-25 19:00] VITALS: BP_SYST 96
--- NOTE | 2019-06-25 19:15 | NUR ---
change of shift.pt.presents isolation status;standard.pt presents mid line;iv locked to be d/c and awaiting the picc line/mid-line nsg;roberto to present to place new picc line/mid line.pt.assessed for or clwenlienss.pt rsp[itned/.pt p[rs thx;cva;pt prs trt.sdied weakenss;paralysis.pt non-verbal;aspahsic.pt awake;eys tracking. pt presents hx;hemo-dialysis;pt[res lt.int-jugualtr quintoin cath.inatct.dsg inatct.call [facility] telephone w/in reach of the pt;lt.side;hand.
[2019-06-25 20:00] VITALS: BP_SYST 96
[2019-06-25] MEDS ORDERED: MAGNESIUM SUL 2 GM/50 ML PREMIX IV ONE (20:00)
[2019-06-25] MEDS ORDERED: POTASSIUM CHLORIDE 20 MEQ/PKT PACKET GT ONE (20:00)
[2019-06-25] MEDS ORDERED: MAGNESIUM SULFATE 1 GM/2 ML VIAL IVP ONE (20:00)
--- NOTE | 2019-06-25 20:00 | NUR ---
pt.assessed.v/s assessed;values presents b/p low values.review of the pt's hx:b/p pt.has presented low values. pt.assessed for for cleanliness.pt.repositioned.i have suctioned the pt.awaiting the picc line/mid-line nsg;roberto.general status stable. respiratory status stable;unlabored;02-sat%=96%.call light/telephone placed w/in reach of the pt;lt.side;hand.
--- NOTE | 2019-06-25 21:00 | NUR ---
picc line/mid line nsg present;rj.roberto has placed a mid-line;rt.bicept.to be used.i have administered the 2100pmedications via the g-tube.i have initiated the administration of the iv fluids.depakane;ivpb,maxipime;abx ivpb,magnisium rider;2gm.i have flushed the mid- line x2 lumens.i have placed the nsg/pt.alert signs@the hob:rt.arm:mid-line.lt.arm:av-shunt:no b/p.
--- NOTE | 2019-06-25 22:00 | NUR ---
pt.assessed.pt.assessed for cleanliness.pt.repositioned.mid-line intact;patent;iv fluids infusing.i have suctioned the pt. general status stable.respiratory status stable;unlabored:%=96%.call light/telephone placed w/in reach of the pt. lt.side;hand.
[2019-06-25] MEDS: CEFEPIME 1 GM in D5W 50 ML IV SCH (23:05)
[2019-06-25] MEDS: KCL 20 mEq in D5/0.45NS 1000mL 1,000 ML IV SCH (23:05)
--- NOTE | 2019-06-26 | NUR ---
pt.assessed.v/s assessed;PT.PRESEnTS B/P LOW VALUES W/IN NORMAL LEVEL FOR the PT.PT.ASSessed for CLEaNLINESS. PT RePosiTioNED.IV ACCESs INTaCT;PAtent .IV FLUIDS [id number] HAVE assessed the blood glucose value;71mg/.dl.i have administered juice.via g-tube.general status stable.respiratory status stable;unlabored;02-sat%=96%.call light/telephone placed w/in reach of the pt.lt.side hand.
[2019-06-26 01:18] VITALS: BP_SYST 94
--- NOTE | 2019-06-26 02:00 | NUR ---
pt.assessed.pt.assessed for cleanliness.pt.repositioned.mid line intact;patent;iv fluids infusing.i have suctioned the pt.general status stable. respiratory status stable;unlabored;02-sat%=96%.call light/telephone placed w/in reach of the pt.lt.side;hand.
[2019-06-26] MEDS: LevALBUTEROL HCL 1.25 MG/0.5 ML *CONC.* VIAL.NEB (XOPENEX CONC.) INH SCH ×4 (03:53→20:03)
--- NOTE | 2019-06-26 04:00 | NUR ---
pt.assessed.pt.assessed for cleanliness.pt.repositioned.i have suctioned the pt.mid line intact;patent.iv fluids infusing. general statu stable.respiratory status stable;unlabored;02-sat%=96%.call light/telephone placed w/in reach of the pt.
[2019-06-26] MEDS: VALPROATE SODIUM 750 MG in D5W 100 ML IV SCH ×3 (06:13→22:47)
[2019-06-26] MEDS: DEXTROSE 50% JECT 50 ML DISP.SYRIN IVP PRN ×3 (06:24→17:38)
--- NOTE | 2019-06-26 06:30 | NUR ---
pt.assessed.pt.assessed for cleanliness.pt repositioned.blood glucose assessed ;value;63/66mg/dl.i have administer d50 ivp 50ml;.to re-asses the blood glucose.i have attended to the wound care.i have changed the g-tube dsg.i have removed the mid-line old.dsg applied. general status stable.respiratory status stable;o2-sat%=96%.call light/telephone placed w/in the reach of the pt.lt.side. i have weighed the pt.this am 2/t hemo-dialysis status. Addendum: 06/27/19 at 1944 by Cayetano Beltran RN i attended to the skin care;noted denuded skin@the aperature of the gluteals.denuded skin x2 sites. i removed the mid-line;old d/c r.i removed the dsg;i noted denuded skin;tears x4@different sites.
--- NOTE | 2019-06-26 07:10 | NUR ---
i re-assessed the blood glucose post administration;d50 ivp;50ml's.the blood glucose value;192mg/dl. i apprised the day shift teo;nii of the blood glucose value;post administration of the d50 ivp. i have taken the photos;the skin tears [id number];@rt.bicept.
[2019-06-26 08:00] VITALS: BP_SYST 90
--- NOTE | 2019-06-26 08:00 | NUR ---
OPening notes, Received pt in bed, pt is sleeping, no fever. no s/s of pain. no sob, no resp distress. Per report pt has new midline on right upper arm. iv fluids infusing well. , g-tube clamped, [pt kept npo. safety precaution in place. call light in reach. bed in low position. will cont to monitor.
[2019-06-26 08:07] LABS: MEAN CORPUSCULAR HEMOGLOBIN 32 pg (27-31); MEAN CORPUSCULAR HGB CONC 33 % (32-36); MEAN CORPUSCULAR VOLUME 96 fL (79.0-98.0); PLATELET COUNT (AUTO) 385 K/uL (130-430); RED BLOOD CELL COUNT(AUTO) 2.31 MIL/uL (4.2-6.2); RED CELL DISTRIBUTION WIDTH 16.7 % (9.0-15.0); WHITE BLOOD COUNT (AUTO) 15.5 K/uL (4.8-10.8)
[2019-06-26 08:14] LABS: CALCIUM 8.9 mg/dL (8.4-11.0); CREATININE 4.46 mg/dL (0.55-1.30); POTASSIUM 3.6 mmol/L (3.5-5.1)
[2019-06-26 08:20] LABS: ALBUMIN 1.6 g/dL (3.4-4.8); PHOSPHORUS 2.9 mg/dL (2.7-4.5); TOTAL BILIRUBIN 0.2 mg/dL (0.0-1.0)
[2019-06-26 08:33] LABS: HEMATOCRIT 22.1 % (36-54)
[2019-06-26] MEDS ORDERED: *PPN PER PHARMACY XX PRN (08:45)
[2019-06-26] MEDS ORDERED: INSULIN REGULAR, HUMAN 100 UNITS/ML, 10 ML VIAL (humuLIN R) SUBCUT PRN (08:45)
[2019-06-26] MEDS: PANTOPRAZOLE SODIUM 40 MG/VIAL (PROTONIX) IVP SCH ×2 (09:09→20:08)
[2019-06-26] MEDS: VANCOMYCIN HCL ORAL SOLUTION 250 MG/5 ML, 80 ML PO SCH ×4 (09:09→20:22)
[2019-06-26 09:27] LABS: ATYPICAL LYMPHOCYTES % 0 % (0-0); BAND % (MANUAL) 0 % (0-6); BASOPHILS % (MANUAL) 0 % (0-2); EOSINOPHILS % (MANUAL) 0 % (0-7); LYMPHOCYTES % (MANUAL) 13 % (20-46); MONOCYTES % (MANUAL) 9 % (0-11)
[2019-06-26 09:28] LABS: HEMOGLOBIN 7.3 g/dL (14.0-18.0)
--- NOTE | 2019-06-26 10:00 | NUR ---
pt in bed, turned and repositioned. no s/s of pain. no sob.
--- NOTE | 2019-06-26 10:44 | NUR ---
Dc Planning: Received call from Paula/Nancie: the last inpatient approval day for [facility] was yesterday. She requested pt transfer to [facility] / to [facility] today. She will be arranging the transfer and peer to peer. Dr Cardenas made aware. >> Pt's sister/Brenda made aware via phone # [phone]. She agreed with the POC. Addendum: 06/26/19 at 1422 by Madison Feliz RN No responding from dr. Ronald Cm requests MY [facility] to f/u with the transfer order. Addendum: 06/26/19 at 1508 by Madison Feliz RN >> Received the transfer order from dr. Ronald CM M notifying Nancie ipa: Paula # [phone] and Brenda Vo (after 3pm staff) # [phone]. The pt may transfer to [facility] when bed available. CM requesting [facility] to call nursing unit to give the transfer instruction/bed assignment and ambulance set up. -- MY Miner made aware, dc package placed in nursing unit.
[2019-06-26] MEDS ORDERED: GASTROGRAFIN 120 ML ONE (10:58)
[2019-06-26 11:32] VITALS: BP_SYST 98
--- NOTE | 2019-06-26 12:13 | NUR ---
blood sugar is 69, pt given d50 x1
[2019-06-26] MEDS: KCL 20 mEq in D5/0.45NS 1000mL 1,000 ML IV SCH (12:21)
--- NOTE | 2019-06-26 12:26 | NUR ---
pt's fsbs not 134 after given d50x1
[2019-06-26] MEDS: metroNIDAZOLE 500 mg/NS 100 ML IV SCH ×2 (13:53→22:47)
[2019-06-26 16:00] VITALS: BP_SYST 116
--- NOTE | 2019-06-26 16:05 | NUR ---
pt in bed, eyes closed. breathing even and unlabored. no s/s of pain. no sob.
[2019-06-26 16:24] LABS: BASOPHILS % (AUTO) 0.1 % (0.0-2.0); EOSINOPHILS # (AUTO) 0.3 K/uL (0.0-0.4); EOSINOPHILS % (AUTO) 2.1 % (0.0-4.0); HEMOGLOBIN 7.3 g/dL (14.0-18.0); LYMPHOCYTES # (AUTO) 1.8 K/uL (1.0-5.5); LYMPHOCYTES % (AUTO) 13.5 % (20.5-51.5); MEAN CORPUSCULAR HEMOGLOBIN 32 pg (27-31); MEAN CORPUSCULAR HGB CONC 33 % (32-36); MEAN CORPUSCULAR VOLUME 96 fL (79.0-98.0); MONOCYTES # (AUTO) 1.7 K/uL (0.0-1.0); MONOCYTES % (AUTO) 12.4 % (1.7-9.3); NEUTROPHILS # (AUTO) 9.7 K/uL (1.8-7.7); NEUTROPHILS % (AUTO) 71.9 % (40.0-70.0); PLATELET COUNT (AUTO) 414 K/uL (130-430); RED BLOOD CELL COUNT(AUTO) 2.29 MIL/uL (4.2-6.2); WHITE BLOOD COUNT (AUTO) 13.5 K/uL (4.8-10.8)
[2019-06-26] MEDS ORDERED: DEXTROSE 50% JECT 50 ML DISP.SYRIN ONE (17:53)
--- NOTE | 2019-06-26 18:54 | NUR ---
CLOSING NOTES, PT HAS 2 EPISODE OF HYPOGLYCEMIA, PT GIVEN D50 ORDERED. PT KEPT NPO. NO VOMITING BUT PT HAD WATER STOOL PER [employer]OPELLANT ASSEMBLER. PT WILL START TPN AT 2100. WILL ENDORSE TO NIGHT RN.
--- NOTE | 2019-06-26 19:20 | NUR ---
PM ASSESSMENT Received report from carolyn RN and pt care was endorsed. Pt in bed with eyes closed resting comfortably. No signs of acute distress or discomfort noted. Pt on 2L o2 via NC, tolerating well with O2 sats @ 98% and even and unlabored breathing. RUPALI picc line noted, dressing c/d/i infusing IVF at this time. Gtube noted, clamped at this time. Contact isolation precautions noted. Bed is locked and in lowest position, call light within reach, will cont to monitor pt.
[2019-06-26 20:00] VITALS: BP_SYST 130
[2019-06-26] MEDS: CEFEPIME 1 GM in D5W 50 ML IV SCH (20:08)
[2019-06-26] MEDS ORDERED: SODIUM CHLORIDE IV SCH ×11 (21:00)
[2019-06-26] MEDS ORDERED: [UNRECOGNIZED DRUG - OTHER] IV SCH ×11 (21:00)
[2019-06-26] MEDS ORDERED: TPN PERIPHERAL IV SCH ×11 (21:00)
[2019-06-26] MEDS ORDERED: SODIUM ACETATE IV SCH ×11 (21:00)
[2019-06-27 00:04] VITALS: BP_SYST 125
[2019-06-27 01:14] VITALS: BP_SYST 112
--- NOTE | 2019-06-27 01:15 | NUR ---
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 M.T CALLED [facility] THEY DONT HAVE ANY AVALABLE PICKUP UNTIL 7 AM. 0120 : CALLED BACK TO [facility] AND TALKED WITH JOHNNY , SHE CONNECT ME WITH JEB AGAIN SHE ASKED ME TO CALL [facility] . MT CALLED [facility] THEY SAID THEY DONT HAVE ANY SERVICE AVAILABLE HERE . 0132: CALLED AND TALKED WITH JOHNNY AND SHE TRANSFER ME TO JEB INFORMED HER [facility] DOESNT HAVE SERVICE , JEB ASKED TO WAIT UNTIL [facility] IS AVAILABLE AND THEN TRANSFER THE PT . INFORMED HER THAT THE PT IS ON TPN , SHE ASKED ME TO STOP FOR TRANSPORTATION AND STATED "THEY CAN RESTART IT ONCE PT IS IN [facility] ".SHE ASKED ME TO CALL [facility] FOR TRANSPORTATION . NOTIFIED PRIMARY RN AND C.N ALSO NAVAL ARCHITECT TO CALL [facility] .
[2019-06-27] MEDS: LevALBUTEROL HCL 1.25 MG/0.5 ML *CONC.* VIAL.NEB (XOPENEX CONC.) INH SCH ×2 (01:29→07:28)
--- NOTE | 2019-06-27 01:35 | NUR ---
Called [facility], the dispatcher said that she cannot give us an ETA, because she don't know what time the crew is coming. The dispatcher recommended to call them back at 7 o'clock in the morning.
--- NOTE | 2019-06-27 01:39 | NUR ---
Called [facility] and spoke to MY Chang at this time. Made RN aware that the transportation that block and case maker wanted to set up will not have availability until the morning. Will cont to monitor pt.
--- NOTE | 2019-06-27 05:00 | NUR ---
Pt cleaned and chucks changed at this time. Pt tolerated cleaning well. No signs of acute distress or discomfort noted. Will cont to monitor pt.
[2019-06-27] MEDS: metroNIDAZOLE 500 mg/NS 100 ML IV SCH (05:27)
[2019-06-27] MEDS: VALPROATE SODIUM 750 MG in D5W 100 ML IV SCH (05:27)
--- NOTE | 2019-06-27 07:19 | NUR ---
CALLED [facility] INSTRUCTED TO ARRANGED TRANSPORT FOR DIRECT ADMIT TO [facility], RM 368. PER ETHAN GALLARDO DISPATCHER, NO AVAILABLE RESOURCE CAN ACCOMMODATE THE BLS TRANSFER FOR TODAY.
--- NOTE | 2019-06-27 07:22 | NUR ---
BETSEY FROM [facility] CALLED AND REMINDED WHY PT HAS NOT YET TRANSFERED . INFORMED HER THAT [facility] DOES NOT HAVE RESOURCES TO ACCOMMODATE THE DIRECT TRANSFER TO [facility]. I ALSO INFORMED HER THAT [facility] DOES NOT DO DIRECT ADMIT TO OTHER HOSPITAL'S UNIT BUT ALWAYS THRU ED. SHE SUGGESTED TO USE [facility]. WILL TRY.
--- NOTE | 2019-06-27 07:30 | NUR ---
ENDORSEMENT Report given to oncoming dayshift RN using SBAR format and pt care was endorsed. No signs of acute distress or discomfort noted.
--- NOTE | 2019-06-27 07:32 | NUR ---
ARRANGED WITH [facility] TRANSPORT FOR DIRECT ADMIT TO [facility], RM 368. 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 SPOKE TO
[2019-06-27 08:00] VITALS: BP_SYST 111
--- NOTE | 2019-06-27 08:45 | NUR ---
PATIENT TRANSPORTATION BY AMBULANCE HERE. TELEMETRY BOX REMOVED. MIDLINE ACCESS REMAINS INTACT. REPORT GIVEN TO AMBULANCE DRIVERS. PT REPORT TO HOSPITAL GIVEN ON PREVIOUS SHIFT. PT DISCHARGED BY S AMBULANCE TO [facility]. B/P 109/66 71 18 97%
== END 2019-06-27 08:30 | disposition short-term general hospital (02) | DRG 871 ==
LOC: SED 13:16 → SIC 17:35 → STU 06-20 21:15
PROVIDERS: ADMIT Family Medicine; ATTEND Family Medicine
PROC: 5A1D70Z Performance of Urinary Filtration, Intermittent, Less than 6 Hours Per Day (ICD-10-PCS; 2019-06-15)
PROC: B54MZZA Ultrasonography of Right Upper Extremity Veins, Guidance (ICD-10-PCS; 2019-06-17)
PROC: 05HY33Z Insertion of Infusion Device into Upper Vein, Percutaneous Approach (ICD-10-PCS; 2019-06-17)
PROC: 02HV33Z Insertion of Infusion Device into Superior Vena Cava, Percutaneous Approach (ICD-10-PCS; principal; 2019-06-18)
PROC: B548ZZA Ultrasonography of Superior Vena Cava, Guidance (ICD-10-PCS; 2019-06-18)
PROC: 5A1D70Z Performance of Urinary Filtration, Intermittent, Less than 6 Hours Per Day (ICD-10-PCS; 2019-06-18)
PROC: 06PYX3Z Removal of Infusion Device from Lower Vein, External Approach (ICD-10-PCS; 2019-06-18)
PROC: 0DB98ZX Excision of Duodenum, Via Natural or Artificial Opening Endoscopic, Diagnostic (ICD-10-PCS; 2019-06-19)
PROC: 5A1D70Z Performance of Urinary Filtration, Intermittent, Less than 6 Hours Per Day (ICD-10-PCS; 2019-06-20)
PROC: 5A1D70Z Performance of Urinary Filtration, Intermittent, Less than 6 Hours Per Day (ICD-10-PCS; 2019-06-23)
PROC: 0W9G3ZZ Drainage of Peritoneal Cavity, Percutaneous Approach (ICD-10-PCS; 2019-06-23)
PROC: 5A1D70Z Performance of Urinary Filtration, Intermittent, Less than 6 Hours Per Day (ICD-10-PCS; 2019-06-25)
PROC: 05HD33Z Insertion of Infusion Device into Right Cephalic Vein, Percutaneous Approach (ICD-10-PCS; 2019-06-25)
PROC: B54MZZA Ultrasonography of Right Upper Extremity Veins, Guidance (ICD-10-PCS; 2019-06-25)
DX: A41.9 Sepsis, unspecified organism (principal); N18.6 End stage renal disease; R53.2 Functional quadriplegia; J69.0 Pneumonitis due to inhalation of food and vomit; N39.0 Urinary tract infection, site not specified; I13.11 Hypertensive heart and chronic kidney disease without heart failure, with stage 5 chronic kidney disease, or end stage renal disease; N17.9 Acute kidney failure, unspecified; K92.2 Gastrointestinal hemorrhage, unspecified; I69.351 Hemiplegia and hemiparesis following cerebral infarction affecting right dominant side; I24.8 Other forms of acute ischemic heart disease; T82.594A Other mechanical complication of infusion catheter, initial encounter; G93.1 Anoxic brain damage, not elsewhere classified; Y84.8 Other medical procedures as the cause of abnormal reaction of the patient, or of later complication, without mention of misadventure at the time of the procedure; Y92.238 Other place in hospital as the place of occurrence of the external cause; G40.909 Epilepsy, unspecified, not intractable, without status epilepticus; E87.5 Hyperkalemia; M79.89 Other specified soft tissue disorders; K44.9 Diaphragmatic hernia without obstruction or gangrene; K20.9 Esophagitis, unspecified; J44.9 Chronic obstructive pulmonary disease, unspecified; K31.89 Other diseases of stomach and duodenum; R65.20 Severe sepsis without septic shock; D64.9 Anemia, unspecified; R13.10 Dysphagia, unspecified; Z93.1 Gastrostomy status; Z99.2 Dependence on renal dialysis; Z74.01 Bed confinement status; Z87.820 Personal history of traumatic brain injury; I69.320 Aphasia following cerebral infarction; Z87.891 Personal history of nicotine dependence; Z79.899 Other long term (current) drug therapy; Z22.39 Carrier of other specified bacterial diseases
CPT/HCPCS: 36415; 43239; 71045; 71260-TC; 74018; 74245-TC; 76937; 80048; 80053; 80074; 80164-TC; 80202-TC; 81000-TC; 82150-TC; 82550-TC; 82553-TC; 82962; 83051; 83605; 83690-TC; 83735-TC; 84100-TC; 84478-TC; 84484; 85007; 85014-TC; 85025; 85027; 85048; 85049-TC; 85610-TC; 85730-TC; 86301; 87040-TC; 87081; 87086; 87230-TC; 88108; 88305; 88313; 90935; 90937; 93005; 93306; 93971; 94640; 94760; 96361; 96365; 96375; 99291; 99292; C1729; C1751; C9113; G0378; J0692; J1644; J1815; J2001; J2250; J2405; J2543; J2765; J2997; J3010; J3370; J3465; J3475; J3480; J3490; J7030; J7050; J7060; J7131; J7612; Q9963; Q9964; Q9967

== ENCOUNTER 2019-09-16 11:39 | Inpatient (IN) | payer MEDICARE, OTHER ==
[~2019-09-16] VITALS: Ht 167.6 cm; Wt 76.2 kg
[~2019-09-16 11:39] MED LIST changes: -BUDE0.5A4 NEB; -IPRA3AMP9 INH
[2019-09-16 11:47] VITALS: BP_SYST 150
[2019-09-16] MEDS ORDERED: Rena-Vite GT (12:12)
[2019-09-16] MEDS ORDERED: IPRA4AER INH (12:12)
[2019-09-16] MEDS ORDERED: LANS15CA14 GT (12:12)
[2019-09-16] MEDS ORDERED: LIPA1TAB3 GT (12:12)
[2019-09-16 12:40] LABS: BASOPHILS % (AUTO) 0.1 % (0.0-2.0); EOSINOPHILS # (AUTO) 0.2 K/uL (0.0-0.4); EOSINOPHILS % (AUTO) 2.4 % (0.0-4.0); HEMATOCRIT 34.9 % (36-54); HEMOGLOBIN 10.9 g/dL (14.0-18.0); LYMPHOCYTES # (AUTO) 3.5 K/uL (1.0-5.5); MEAN CORPUSCULAR HEMOGLOBIN 30 pg (27-31); MEAN CORPUSCULAR HGB CONC 31 % (32-36); MEAN CORPUSCULAR VOLUME 97 fL (79.0-98.0); MONOCYTES # (AUTO) 0.9 K/uL (0.0-1.0); MONOCYTES % (AUTO) 11.6 % (1.7-9.3); NEUTROPHILS # (AUTO) 3.2 K/uL (1.8-7.7); NEUTROPHILS % (AUTO) 40.9 % (40.0-70.0); PLATELET COUNT (AUTO) 358 K/uL (130-430); RED BLOOD CELL COUNT(AUTO) 3.61 MIL/uL (4.2-6.2); RED CELL DISTRIBUTION WIDTH 16.3 % (9.0-15.0); WHITE BLOOD COUNT (AUTO) 7.8 K/uL (4.8-10.8)
[2019-09-16 12:49] LABS: CALCIUM 9.8 mg/dL (8.4-11.0); CREATININE 4.85 mg/dL (0.55-1.30); POTASSIUM 5.3 mmol/L (3.5-5.1)
[2019-09-16 12:54] LABS: ALBUMIN 2.9 g/dL (3.4-4.8); TOTAL BILIRUBIN 0.3 mg/dL (0.0-1.0)
[2019-09-16] MEDS: NACL 0.9% 1,000 ML IV SCH (16:58)
[2019-09-16 17:00] VITALS: BP_SYST 130
[2019-09-16 17:05] VITALS: BP_SYST 130
[2019-09-16] MEDS ORDERED: LORazepam 2 MG/ML VIAL IVP PRN (19:45)
[2019-09-16] MEDS ORDERED: BISACODYL 10 MG/SUPPOSITORY RC PRN (19:45)
[2019-09-16] MEDS ORDERED: ONDANSETRON HCL 4 MG/2 ML VIAL IVP PRN (19:45)
[2019-09-16] MEDS ORDERED: LevALBUTEROL HCL 1.25 MG/0.5 ML *CONC.* VIAL.NEB (XOPENEX CONC.) INH PRN (19:45)
[2019-09-16] MEDS ORDERED: LevALBUTEROL HCL 1.25 MG/0.5 ML *CONC.* VIAL.NEB (XOPENEX CONC.) INH ONE (19:45)
[2019-09-16 20:00] VITALS: BP_SYST 128
[2019-09-16] MEDS: PANTOPRAZOLE SODIUM 40 MG/VIAL (PROTONIX) IVP SCH (21:59)
[2019-09-16] MEDS: VALPROATE SODIUM 500 MG in D5W 100 ML IV SCH (22:00)
[2019-09-17] VITALS (7 sets, daily range): BP systolic 101–126
[2019-09-17] MEDS: VALPROATE SODIUM 500 MG in D5W 100 ML IV SCH ×3 (06:17→21:20)
[2019-09-17 07:01] LABS: BASOPHILS % (AUTO) 0.2 % (0.0-2.0); EOSINOPHILS # (AUTO) 0.3 K/uL (0.0-0.4); EOSINOPHILS % (AUTO) 3.5 % (0.0-4.0); HEMATOCRIT 26.9 % (36-54); HEMOGLOBIN 8.7 g/dL (14.0-18.0); LYMPHOCYTES # (AUTO) 2.7 K/uL (1.0-5.5); LYMPHOCYTES % (AUTO) 30.9 % (20.5-51.5); MEAN CORPUSCULAR HEMOGLOBIN 31 pg (27-31); MEAN CORPUSCULAR HGB CONC 32 % (32-36); MONOCYTES # (AUTO) 1.1 K/uL (0.0-1.0); MONOCYTES % (AUTO) 12.3 % (1.7-9.3); NEUTROPHILS # (AUTO) 4.6 K/uL (1.8-7.7); NEUTROPHILS % (AUTO) 53.1 % (40.0-70.0); PLATELET COUNT (AUTO) 382 K/uL (130-430); RED BLOOD CELL COUNT(AUTO) 2.85 MIL/uL (4.2-6.2); RED CELL DISTRIBUTION WIDTH 16.2 % (9.0-15.0); WHITE BLOOD COUNT (AUTO) 8.7 K/uL (4.8-10.8)
[2019-09-17 07:06] LABS: MEAN CORPUSCULAR VOLUME 95 fL (79.0-98.0)
[2019-09-17 07:18] LABS: CALCIUM 9.8 mg/dL (8.4-11.0); CREATININE 5.66 mg/dL (0.55-1.30); POTASSIUM 4.7 mmol/L (3.5-5.1)
[2019-09-17] MEDS: PANTOPRAZOLE SODIUM 40 MG/VIAL (PROTONIX) IVP SCH ×2 (08:30→20:20)
[2019-09-17] MEDS ORDERED: GASTROGRAFIN 120 ML ONE (08:48)
[2019-09-17] MEDS: NACL 0.9% 1,000 ML IV SCH ×2 (14:04→20:20)
[2019-09-18] MEDS: NACL 0.9% 1,000 ML IV SCH ×2 (05:11→18:05)
[2019-09-18] MEDS: VALPROATE SODIUM 500 MG in D5W 100 ML IV SCH ×3 (05:11→22:25)
[2019-09-18 06:19] LABS: INR 1.1 (0.80-1.20)
[2019-09-18 06:25] LABS: CALCIUM 9.4 mg/dL (8.4-11.0); CREATININE 3.96 mg/dL (0.55-1.30); POTASSIUM 3.4 mmol/L (3.5-5.1)
[2019-09-18 06:43] LABS: BASOPHILS % (AUTO) 0.5 % (0.0-2.0); EOSINOPHILS # (AUTO) 0.4 K/uL (0.0-0.4); EOSINOPHILS % (AUTO) 5.4 % (0.0-4.0); HEMATOCRIT 27.8 % (36-54); HEMOGLOBIN 8.9 g/dL (14.0-18.0); LYMPHOCYTES # (AUTO) 3.9 K/uL (1.0-5.5); LYMPHOCYTES % (AUTO) 48.8 % (20.5-51.5); MEAN CORPUSCULAR HEMOGLOBIN 30 pg (27-31); MEAN CORPUSCULAR HGB CONC 32 % (32-36); MEAN CORPUSCULAR VOLUME 95 fL (79.0-98.0); MONOCYTES # (AUTO) 0.9 K/uL (0.0-1.0); MONOCYTES % (AUTO) 10.8 % (1.7-9.3); NEUTROPHILS # (AUTO) 2.8 K/uL (1.8-7.7); NEUTROPHILS % (AUTO) 34.5 % (40.0-70.0); PLATELET COUNT (AUTO) 354 K/uL (130-430); RED BLOOD CELL COUNT(AUTO) 2.93 MIL/uL (4.2-6.2); RED CELL DISTRIBUTION WIDTH 16.3 % (9.0-15.0)
[2019-09-18 07:43] LABS: TOTAL IRON BIND. CAPACITY 234 ug/dL (250-450)
[2019-09-18 08:05] VITALS: BP_SYST 131
[2019-09-18] MEDS: PANTOPRAZOLE SODIUM 40 MG/VIAL (PROTONIX) IVP SCH ×2 (09:04→22:00)
[2019-09-18] MEDS ORDERED: GASTROGRAFIN 120 ML ONE (09:53)
[2019-09-18 12:00] VITALS: BP_SYST 105
[2019-09-18 16:47] VITALS: BP_SYST 112
[2019-09-18] MEDS ORDERED: MENTHOL/ZINC OXIDE 113 GM OINT. TP PRN (17:45)
[2019-09-18] MEDS: MUPIROCIN 2% TOPICAL OINTMENT 22 GM NS SCH (22:01)
[2019-09-19 00:34] VITALS: BP_SYST 126
[2019-09-19] MEDS: NACL 0.9% 1,000 ML IV SCH ×2 (01:27→11:37)
[2019-09-19] MEDS: VALPROATE SODIUM 500 MG in D5W 100 ML IV SCH ×2 (07:00→13:19)
[2019-09-19 07:27] LABS: BASOPHILS % (AUTO) 0.4 % (0.0-2.0); EOSINOPHILS # (AUTO) 0.4 K/uL (0.0-0.4); EOSINOPHILS % (AUTO) 6.9 % (0.0-4.0); HEMATOCRIT 26.7 % (36-54); HEMOGLOBIN 8.6 g/dL (14.0-18.0); LYMPHOCYTES # (AUTO) 2.7 K/uL (1.0-5.5); LYMPHOCYTES % (AUTO) 47.3 % (20.5-51.5); MEAN CORPUSCULAR HEMOGLOBIN 31 pg (27-31); MEAN CORPUSCULAR HGB CONC 32 % (32-36); MEAN CORPUSCULAR VOLUME 96 fL (79.0-98.0); MONOCYTES # (AUTO) 0.6 K/uL (0.0-1.0); MONOCYTES % (AUTO) 10.1 % (1.7-9.3); NEUTROPHILS % (AUTO) 35.3 % (40.0-70.0); PLATELET COUNT (AUTO) 396 K/uL (130-430); RED BLOOD CELL COUNT(AUTO) 2.78 MIL/uL (4.2-6.2); WHITE BLOOD COUNT (AUTO) 5.8 K/uL (4.8-10.8)
[2019-09-19 07:37] LABS: CALCIUM 9.4 mg/dL (8.4-11.0); CREATININE 5.32 mg/dL (0.55-1.30); POTASSIUM 3.7 mmol/L (3.5-5.1)
[2019-09-19] MEDS: MUPIROCIN 2% TOPICAL OINTMENT 22 GM NS SCH (08:01)
[2019-09-19] MEDS: PANTOPRAZOLE SODIUM 40 MG/VIAL (PROTONIX) IVP SCH (08:02)
[2019-09-19 08:04] VITALS: BP_SYST 110
[2019-09-19 12:43] VITALS: BP_SYST 134
[2019-09-19 16:09] VITALS: BP_SYST 134
[2019-09-19 17:05] VITALS: BP_SYST 126
[2019-09-19 20:00] VITALS: BP_SYST 120
[2019-09-20 09:10] LABS: FOLATE (FOLIC ACID) >20.0 ng/mL (>3.0)
[2019-09-21 15:18] LABS: FERRITIN 922 ng/mL (30-400)
== END 2019-09-19 21:03 | DRG 393 ==
LOC: SED 11:39 → SMU 14:55
PROVIDERS: ADMIT Family Medicine; ATTEND Family Medicine
PROC: 0DH63UZ Insertion of Feeding Device into Stomach, Percutaneous Approach (ICD-10-PCS; 2019-09-17)
PROC: 5A1D70Z Performance of Urinary Filtration, Intermittent, Less than 6 Hours Per Day (ICD-10-PCS; 2019-09-17)
PROC: 0DHA3UZ Insertion of Feeding Device into Jejunum, Percutaneous Approach (ICD-10-PCS; principal; 2019-09-18 10:00)
PROC: 5A1D70Z Performance of Urinary Filtration, Intermittent, Less than 6 Hours Per Day (ICD-10-PCS; 2019-09-19)
DX: K94.23 Gastrostomy malfunction (principal); N18.6 End stage renal disease; G82.50 Quadriplegia, unspecified; E87.1 Hypo-osmolality and hyponatremia; I12.0 Hypertensive chronic kidney disease with stage 5 chronic kidney disease or end stage renal disease; K31.6 Fistula of stomach and duodenum; G40.909 Epilepsy, unspecified, not intractable, without status epilepticus; R13.10 Dysphagia, unspecified; J44.9 Chronic obstructive pulmonary disease, unspecified; E87.5 Hyperkalemia; Y83.3 Surgical operation with formation of external stoma as the cause of abnormal reaction of the patient, or of later complication, without mention of misadventure at the time of the procedure; Z99.2 Dependence on renal dialysis; Z86.73 Personal history of transient ischemic attack (TIA), and cerebral infarction without residual deficits; Z79.899 Other long term (current) drug therapy; Y92.89 Other specified places as the place of occurrence of the external cause
CPT/HCPCS: 36415; 71045; 74240-TC; 76770; 80048; 80053; 82607; 82728; 82746; 83540-TC; 83550-TC; 85025; 85610-TC; 87081; 90935; 90937; 93005; 99285; C9113; J7030; J7042; J7060; Q9963